=== PATIENT | female | born 1935 | race Caucasian/White ===

== ENCOUNTER 2016-11-05 10:59 | Emergency (ER) | payer MEDICARE, OTHER ==
[~2016-11-05] VITALS: Ht 165.1 cm; Wt 48.0 kg
[~2016-11-05 10:59] MED LIST: ACET-2321 PO; ASPI81TA2 PO; DILT360C38 PO; FOLI1TAB15 PO; HYDR-3989 PO; LEVO25TA9 PO; MIRT30TA6 PO; NICO1PAT16 TD; RALO60TA9 PO
[2016-11-05 11:00] VITALS: Ht 165.1 cm; Wt 48.0 kg
[2016-11-05] MEDS ORDERED: NORMAL SALINE 500 ML IV ONE (11:00)
--- OUTSIDE RECORDS SUMMARY | 2016-11-05 11:04 | XMS REPORT | Continuity of Care Document ---
Author Author [facility] Organization [facility] Address Unknown Phone Unavailable Support Name Relationship Address Phone JOYCE ROWE MD Caregiver [address] [place] [phone] LIA JACOB MD Caregiver [address] [place] [phone] THAIS LEWIS Next Of Kin [address] [place], [place] [id number] Insurance Providers Payer Name Policy Number Subscriber Name Relationship Medicare [id number] Parul Juarez 19 Self [facility] [id number] Rafa Lewis 01 Spouse Problems Medical Problems Problem Onset Date Status COPD Exacerbation Unknown Active Contusion Unknown Active 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 Viral illness Unknown Active Contusion Unknown Active Nausea & vomiting Unknown Active Nausea & vomiting Unknown Active Medications Medication Dose Route Sig Days/Qty Instructions Order Date Discontinued Date Status Aspirin 325 Mg PO DAILY 02/13/10 Active Torsemide 20 Mg PO DAILY 02/13/10 Active Raloxifene Hcl 60 Mg PO DAILY 02/13/10 Active Potassium Chloride 10 Meq PO TWICE A DAY 02/13/10 Active Lansoprazole 30 Mg PO DAILY 02/13/10 Active Acetaminophen With Codeine 1 Tab PO NEEDED 02/13/10 08/01/10 Discontinued Acetaminophen/Dp-Hydram Hcl 1 Tab PO BEDTIME 08/01/10 Active Escitalopram Oxalate 10 Mg PO DAILY 30 Qty 02/15/14 Active Zolpidem Tartrate 5 Mg PO BEDTIME PRN PRN ORDERS 30 Qty 02/15/14 Active Mirtazapine 15 Mg PO 30 Qty 02/15/14 Active Hydrocodone/Acetaminophen PO Every 6 Hours PRN PAIN 120 Qty 02/15/14 Active Fexofenadine HCl 1 Tab PO DAILY Do not drink [place], [place], or Grapefruit juice within 4 02/15/14 Active Mometasone Furoate 2 [place] EA NOSTRIL DAILY 02/15/14 Active Albuterol Sulfate 2 Puff INH FOUR TIMES DAILY PRN PRN ORDERS Active Ondansetron 4 Mg PO Q6H/0300,0900,1500,2100 For NAUSEA &/OR VOMITING 10 Qty 02/26/14 Active Social History Social History Problem Response Recorded Date/Time Smoking Status Current every day smoker 02/26/2014 6:25am 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 Plan of Care No plan of care. Functional Status Query Response Date Recorded Physical Hygiene Self February 26, 2014 6:25am Disabilities None February 26, 2014 6:25am Devices Used Glasses Wheelchair February 26, 2014 6:25am Dressing Self February 26, 2014 6:25am Ambulation Self February 26, 2014 6:25am Diet Self February 26, 2014 6:25am Mental Status Alert Oriented February 26, 2014 8:54am Disabilities None February 26, 2014 6:25am Devices Used Glasses Wheelchair February 26, 2014 6:25am Physical Hygiene Self February 26, 2014 6:25am Dressing Self February 26, 2014 6:25am Ambulation Self February 26, 2014 6:25am Diet Self February 26, 2014 6:25am Allergies, Adverse Reactions, Alerts Allergen Type Severity Reaction Status Last Updated NSAIDS (Non-Steroidal Anti-Inflamma Adverse Reaction Unknown KIDNEY PROBLEMS Active 02/26/14 Sulfa (Sulfonamide Antibiotics) Allergy Unknown Active 02/26/14 Morphine Allergy Intermediate rash Active 02/26/14 Alendronate sodium Allergy Unknown Active 02/26/14 Immunizations Name Given Type Hx Influenza Vaccination Y JUL 07 Historical Hx Pneumococcal Vaccination Y JUL 07 Historical Hx Influenza Vaccination Y JUL 07 Historical Vital Signs Acute Vital Signs Vital Response Date/Time Temperature (Fahrenheit) 98.3 deg F (96.8 - 99.1) Temperature (Calculated Celsius) 36.12474 degrees C (36.0 - 37.3) Pulse Rate (adult) 75 bpm (60 - 100) Respiratory Rate 23 breaths/min (10 - 20) O2 Sat by Pulse Oximetry 93 % (90 - 100) Blood Pressure 193/81 mm Hg Height 5 ft 5 in Weight 137 lb Body Mass Index 22.0 kg/m^2 Results Test Source Date Result Interp. Ref. Range Comments Alanine Aminotransferase (ALT/SGPT) February 26, 2014 6:11am 18 U/L N 9 -52 Albumin February 26, 2014 6:11am 4.5 G/DL N 3.5-5.0 Albumin/Globulin Ratio February 26, 2014 6:11am 1.4 RATIO N 1.1-2.2 Alkaline Phosphatase February 26, 2014 6:11am 108 U/L N 38-126 Amylase Level February 26, 2014 6:11am 63 U/L N 30-110 Anion Gap February 26, 2014 6:11am 13 MEQ/L N 5-15 Aspartate Amino Transf (AST/SGOT) February 26, 2014 6:11am 30 U/L N 14- 36 BUN/Creatinine Ratio February 26, 2014 6:11am 20 RATIO N 6-26 Band Neutrophils # August 06, 2010 4:25am 0.0 T/MM3 - Band Neutrophils % August 06, 2010 4:25am 0.0 % N 0-6 Basophils # (Auto) February 26, 2014 6:11am 0.0 T/MM3 N 0-0.2 Basophils # (Manual) August 06, 2010 4:25am 0.0 T/MM3 N 0-0.2 Basophils % (Manual) August 06, 2010 4:25am 0.3 % N 0-2 Basophils (%) (Auto) February 26, 2014 6:11am 0.2 % N 0-2 Blood Urea Nitrogen February 26, 2014 6:11am 20.0 MG/DL H 7-17 Calcium Level February 26, 2014 6:11am 10.2 MG/DL N 8.4-10.2 Calculated Osmolality February 26, 2014 6:11am 272 MOSM/KG N 261-280 Carbon Dioxide Level February 26, 2014 6:11am 23 MEQ/L N 22-30 Chloride Level February 26, 2014 6:11am 103 MEQ/L N 98-107 Creatinine February 26, 2014 6:11am 1.0 MG/DL N 0.7-1.2 Eosinophils # (Auto) February 26, 2014 6:11am 0.2 T/MM3 N 0-0.5 Eosinophils # (Manual) August 06, 2010 4:25am 0.3 T/MM3 N 0-0.5 Eosinophils % (Manual) August 06, 2010 4:25am 4.4 % H 0-4 Eosinophils (%) (Auto) February 26, 2014 6:11am 1.9 % N 0-4 Globulin February 26, 2014 6:11am 3.3 G/DL N 2.4-3.6 Glucose Level February 26, 2014 6:11am 122 MG/DL H 65-110 Hematocrit February 26, 2014 6:11am 39.8 % N 36-46 Hemoglobin February 26, 2014 6:11am 13.5 GM/DL N 12-16 Lipase February 26, 2014 6:11am 134 U/L N 23-300 Lymphocytes # (Auto) February 26, 2014 6:11am 0.9 T/MM3 L 1-4.8 Lymphocytes # (Manual) August 06, 2010 4:25am 0.6 T/MM3 L 1-4.8 Lymphocytes % (Manual) August 06, 2010 4:25am 9.4 % L 23-45 Lymphocytes (%) (Auto) February 26, 2014 6:11am 8.0 % L 23-45 Mean Corpuscular Hemoglobin February 26, 2014 6:11am 31.6 UUG N 26-34 Mean Corpuscular Hemoglobin Concent February 26, 2014 6:11am 33.9 GM/DL N 31-37 Mean Corpuscular Volume February 26, 2014 6:11am 93.2 UM3 N 80-100 Mean Platelet Volume February 26, 2014 6:11am 11.7 UM3 N 9.4-12.4 Monocytes # (Auto) February 26, 2014 6:11am 0.5 T/MM3 N 0-0.8 Monocytes # (Manual) August 06, 2010 4:25am 0.4 T/MM3 N 0-0.8 Monocytes % (Manual) August 06, 2010 4:25am 6.8 % N 0-9.0 Monocytes (%) (Auto) February 26, 2014 6:11am 4.8 % N 0-9.0 Neutrophils # (Auto) February 26, 2014 6:11am 9.6 T/MM3 H 1.8-7.7 Neutrophils # (Manual) August 06, 2010 4:25am 5.2 T/MM3 N 1.8-7.7 Neutrophils % (Manual) August 06, 2010 4:25am 79.1 % H 33-66 Neutrophils (%) (Auto) February 26, 2014 6:11am 85.0 % H 33-66 Platelet Count February 26, 2014 6:11am 129 T/MM3 L 130-400 Potassium Level February 26, 2014 6:11am 3.6 MEQ/L N 3.6-5 RDW Standard Deviation February 26, 2014 6:11am 42.9 FL N 36.9-50.2 Red Blood Count February 26, 2014 6:11am 4.27 M/MM3 N 4.00-5.20 Sodium Level February 26, 2014 6:11am 139 MEQ/L N 134-144 Total Bilirubin February 26, 2014 6:11am 0.70 MG/DL N 0.20-1.30 Total Protein February 26, 2014 6:11am 7.8 G/DL N 6.3-8.2 Troponin I February 26, 2014 6:11am 0.021 ng/ml N 0-0.12 Urine Bacteria February 21, 2013 8:57pm 1+ H - Has specimen been collected/obtained? Y Urine Bilirubin February 26, 2014 7:35am Negative - Has specimen been collected/obtained? Y Urine Blood February 26, 2014 7:35am Negative - Has specimen been collected/obtained? Y Urine Collection Type February 26, 2014 7:35am Cleancatch-midstream - Has specimen been collected/obtained? Y Urine Color February 26, 2014 7:35am Yellow - Has specimen been collected/obtained? Y Urine Culture Indicated February 21, 2013 8:57pm Cult not indicated - Has specimen been collected/obtained? Y Urine Glucose (UA) February 26, 2014 7:35am Negative - Has specimen been collected/obtained? Y Urine Ketones February 26, 2014 7:35am 1+ H - Has specimen been collected/obtained? Y Urine Leukocyte Esterase February 26, 2014 7:35am Negative - Has specimen been collected/obtained? Y Urine Nitrite February 26, 2014 7:35am Negative - Has specimen been collected/obtained? Y Urine Protein February 26, 2014 7:35am Negative - Has specimen been collected/obtained? Y Urine RBC February 21, 2013 8:57pm 1-3 /HPF - Has specimen been collected/obtained? Y Urine Specific [place] February 26, 2014 7:35am 1.015 - Has specimen been collected/obtained? Y Urine Squamous Epithelial Cells February 21, 2013 8:57pm 0-5 - Has specimen been collected/obtained? Y Urine Turbidity February 26, 2014 7:35am Clear - Has specimen been collected/obtained? Y Urine Urobilinogen February 26, 2014 7:35am 0.2 EU/DL - Has specimen been collected/obtained? Y Urine WBC February 21, 2013 8:57pm 0-1 /HPF - Has specimen been collected/obtained? Y Urine pH February 26, 2014 7:35am 6.0 - Has specimen been collected/ obtained? Y White Blood Count February 26, 2014 6:11am 11.3 T/MM3 H 4.5-11.0 Chemistry Specimen Hemolysis February 26, 2014 6:11am 17 N 0-25 0-25: No Hemolysis.26-70: Slight Hemolysis - can falsely elevate K and Urine Protein. 71-285: Moderate Hemolysis - can falsely elevate K, Troponin I, CA 19-9, PTH, CSF GLucose, and Urine Protein, and can falsely decrease Phenytoin. 286-999: Gross Hemolysis - can falsely elevate K, Troponin I, CA 19-9, PTH, CSF Glucose, and Urine Protine, and can falsely decrease Phenytoin. Recommend specimen recollection. Urinalysis Comment February 26, 2014 7:35am Microscopic not ind. - Has specimen been collected/obtained? Y Turbidity February 26, 2014 6:11am < 20 0-20 Glomerular Filtration Rate Calc February 26, 2014 6:11am 54 - Immature Granulocyte # (Auto) February 26, 2014 6:11am 0.01 T/MM3 N 0.00-0.03 Immature Granulocyte % (Auto) February 26, 2014 6:11am 0.1 % N 0.0-0.5 Icterus Index February 26, 2014 6:11am < 2 0-7 Urine Culture Urine, [place] August 01, 2010 4:14am Escherichia Coli Name: PARUL JUAREZ Unit #: [id number] : 1935 Sex: F Loc / Sv: ED DOS: 02/26/14 Signed Report #: [id number] DIAGNOSTIC IMAGING REPORT TYPE OF EXAM: ABDOMEN ACUTE (INC. CHEST) Dictated By: ROCK ROSE MD INDICATION: ITS.REASON: NAUSEA/VOMITING ABDOMEN ACUTE (INC. CHEST): Comparison: February 15, 2014 FINDINGS: The lungs are clear. There is no abnormal airspace opacity, pleural effusion or pneumothorax identified. The heart size, pulmonary vasculature and mediastinum are unchanged. There is no free air on the upright view. The bowel gas pattern is nonobstructive and nonspecific. Gas is seen in nondilated small and large bowel to the level of the rectum. Large amount of stool is seen throughout the colon. Pelvic deformity likely from old trauma. Orthopedic hardware the right femur. Degenerative change and scoliosis in the spine. IMPRESSION: 1. No acute cardiopulmonary abnormality. 2. No evidence of acute obstruction or free air. . Procedures Procedure Status Date Provider(s) HYDRATION IV INFUSION INIT completed 02/15/14 Encounters Encounter Location Date/Time Departed Emergency Room [facility] 02/26/14 6:25am Departed Emergency Room [facility] 02/15/14 12:45pm Recent Diagnosis
--- OUTSIDE RECORDS SUMMARY | 2016-11-05 11:04 | XMS REPORT | Continuity of Care Document ---
Author Author [facility] Organization [facility] Address Unknown Phone Unavailable Support Name Relationship Address Phone ABIGAIL NUÑEZ MD Caregiver [address] [place] [address] [place] [address] JOYCE ROWE MD Caregiver [address] [place] [address] [place] [address] [phone] PAUL HUANG MD Caregiver [address] [place] [address] [place] [address] THAIS LEWIS Next Of Kin [address] [place] [address] Insurance Providers Payer Name Policy Number Subscriber Name Relationship Medicare [id number] Parul Juarez 19 Self [facility] Preferred [id number] Rafa Lewis 01 Spouse Advance Directives Directive Response Recorded Date/Time Advanced Directives Type None 06/08/14 8:07pm Ordered Resuscitation Status Full Code 06/08/14 8:08pm Chief Complaint and Reason for Visit Chief Complaint HYPERTENSIVE URGENCY/NEW ONSET AFIB Reason for Visit Hypertensive urgency Atrial fibrillation GERD (gastroesophageal reflux disease) CAD (coronary artery disease) Osteoporosis OA (osteoarthritis) Tobacco dependence Anemia Depression Problems Medical Problems Problem Onset Date Status COPD Exacerbation Unknown Active Contusion Unknown Active 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 Viral illness Unknown Active Contusion Unknown Active Nausea & vomiting Unknown Active Nausea & vomiting Unknown Active Hypertensive urgency Unknown Active Atrial fibrillation Unknown Active GERD (gastroesophageal reflux disease) Unknown Active CAD (coronary artery disease) Unknown Active Osteoporosis Unknown Active OA (osteoarthritis) Unknown Active Tobacco dependence Unknown Active Anemia Unknown Active Depression Unknown Active Medications Medication Dose Route Sig Days/Qty Instructions Order Date Discontinued Date Status Torsemide 20 Mg PO DAILY 02/13/10 Active Raloxifene Hcl 60 Mg PO DAILY 02/13/10 Active Potassium Chloride 10 Meq PO DAILY 02/13/10 Active Lansoprazole 30 Mg PO DAILY [...] Tab PO DAILY Do not drink Apple, [place], or Grapefruit juice within 4 02/15/14 Active Mometasone Furoate 2 [place] EA NOSTRIL DAILY 02/15/14 Active Albuterol Sulfate 2 Puff INH FOUR TIMES DAILY PRN PRN ORDERS Active Multivitamin 1 Tab PO DAILY 06/08/14 Active Cephalexin Unknown Dose PO BEDTIME 06/08/14 Active Oxymetazoline HCl Unknown Dose 06/08/14 Active Diltiazem HCl 180 Mg PO DAILY For afib 30 Qty 06/09/14 Active Rivaroxaban 20 Mg PO GIVE WITH SUPPER For afib 30 Qty 06/09/14 Active Social History Social History Problem Response Recorded Date/Time Hx Substance Use No 06/08/2014 3:45pm Hx Alcohol Use No 06/08/2014 3:45pm Has the pt used tobacco in the last 12 months Yes 06/08/2014 8:37pm Tobacco Usage smoke 06/09/2014 9:19am Query Response Start Date Stop Date Smoking Status Current every day smoker Hospital Discharge Instructions Instructions: Care Instructions: Reason for Hospitalization: Atrial Fibrillation I was in the hospital because (patient own words): "TROUBLE WITH MY BALANCE" Discharge Diet: Low Sodium (Salt) Discharge Activity: As tolerated. Follow Up Appointments: Follow up with Dr Quiles in 1 week - call tomorrow for apt. Follow up with Sonia Miller for Primary Care Provider Condition at time of discharge: Good Good Congenital Heart Disease Screening Result: Pass Temperature over 101 degress Fahrenheit Increased or foul smelling drainage Chills IF BLEEDING, PAIN OR PROGRESSIVE SWELLING OCCURS TO THE SITE, APPLY PRESSURE AND CALL 911. Condition at time of discharge: Fair Fair Condition at time of discharge: Good rate >100, confusion, or persistent nausea/vomitting. 2.Severe pain, swelling, redness, or warmth in either of your legs. 3.During office hours, call [phone] 4. After hours, please call [facility] at [phone], and have the operator maintainer page your Surgeon IN THE EVENT OF AN EMERGENCY, seek medical care at the nearest Emergency Room Condition at time of discharge: Good Plan of Care Discharge Date 06/09/14 3:35pm Disposition 01 DISCHARGED HOME, SELF-CARE Instructions/Education Provided Atrial Fibrillation DI for High Blood Pressure Prescriptions See Medications Section Functional Status Query Response Date Recorded Physical Hygiene Self June 08, 2014 3:45pm Disabilities Hearing Visual June 08, 2014 8:07pm Devices Used Glasses Walker Wheelchair June 08, 2014 8:07pm Dressing Self June 08, 2014 3:45pm Ambulation Self June 08, 2014 3:45pm Diet Self June 08, 2014 3:45pm Mental Status Alert Oriented June 08, 2014 8:01pm Disabilities Hearing Visual June 08, 2014 8:07pm Devices Used Glasses Walker Wheelchair June 08, 2014 8:07pm Physical Hygiene Self June 08, 2014 3:45pm Dressing Self June 08, 2014 3:45pm Ambulation Self June 08, 2014 3:45pm Diet Self June 08, 2014 3:45pm Allergies, Adverse Reactions, Alerts Allergen Type Severity Reaction Status Last Updated NSAIDS (Non-Steroidal Anti-Inflamma Adverse Reaction Unknown KIDNEY PROBLEMS Active 06/08/14 Sulfa (Sulfonamide Antibiotics) Allergy Unknown Active 02/26/14 Morphine Allergy Intermediate rash Active 06/08/14 Alendronate sodium Allergy Unknown Active 02/26/14 Immunizations Name Given Type Hx Influenza Vaccination Y PROB 2012 WAS LAST ONE Historical Hx Pneumococcal Vaccination Y JUL 07 Historical Hx Influenza Vaccination Y PROB 2012 WAS LAST ONE Historical Vital Signs Acute Vital Signs Vital Response Date/Time Temperature (Fahrenheit) 97.2 deg F (96.8 - 99.1) Temperature (Calculated Celsius) 36.10011 degrees C (36.0 - 37.3) Temperature Source Oral Pulse Rate (adult) 82 bpm (60 - 100) Respiratory Rate 20 breaths/min (10 - 20) Height 5 ft 5 in Weight 138 lb Body Mass Index 23.0 kg/m^2 Results Test Source Date Result Interp. Ref. Range Comments Vitamin B12 Level June 09, 2014 5:22am 836 PG/ML N 239-931 Thyroid Stimulating Hormone (TSH) June 09, 2014 5:22am 3.55 MIU/L N 0.47-4.68 COMMENT rita Prealbumin June 09, 2014 5:22am 22.4 MG/DL N 17.6-36.0 Alanine Aminotransferase (ALT/SGPT) June 08, 2014 4:11pm 34 U/L N 9- 52 Albumin June 08, 2014 4:11pm 4.2 G/DL N 3.5-5.0 Albumin/Globulin Ratio June 08, 2014 4:11pm 1.4 RATIO N 1.1-2.2 Alcohol, Quantitative June 08, 2014 4:11pm <10 MG/DL - Alkaline Phosphatase June 08, 2014 4:11pm 61 U/L N 38-126 Amylase Level February 26, 2014 6:11am 63 U/L N 30-110 Anion Gap June 09, 2014 5:22am 6 MEQ/L N 5-15 Aspartate Amino Transf (AST/SGOT) June 08, 2014 4:11pm 32 U/L N 14- 36 BUN/Creatinine Ratio June 09, 2014 5:22am 18 RATIO N 6-26 Band Neutrophils # August 06, 2010 4:25am 0.0 T/MM3 - Band Neutrophils % August 06, 2010 4:25am 0.0 % N 0-6 Basophils # (Auto) June 09, 2014 5:22am 0.0 T/MM3 N 0-0.2 Basophils # (Manual) August 06, 2010 4:25am 0.0 T/MM3 N 0-0.2 Basophils % (Manual) August 06, 2010 4:25am 0.3 % N 0-2 Basophils (%) (Auto) June 09, 2014 5:22am 0.2 % N 0-2 Blood Urea Nitrogen June 09, 2014 5:22am 18.0 MG/DL H 7-17 Calcium Level June 09, 2014 5:22am 9.3 MG/DL N 8.4-10.2 Calculated Osmolality June 09, 2014 5:22am 266 MOSM/KG N 261-280 Carbon Dioxide Level June 09, 2014 5:22am 24 MEQ/L N 22-30 Chemistry Specimen Hemolysis June 09, 2014 5:22am < 15 0-25 0-25 : No Hemolysis.26-70: Slight Hemolysis - can falsely elevate K and Urine Protein. 71-285: Moderate Hemolysis - can falsely elevate K, Troponin I, CA 19-9, PTH, CSF GLucose, and Urine Protein, and can falsely decrease Phenytoin. 286-999: Gross Hemolysis - can falsely elevate K, Troponin I, CA 19-9, PTH, CSF Glucose, and Urine Protine, and can falsely decrease Phenytoin. Recommend specimen recollection. Chloride Level June 09, 2014 5:22am 107 MEQ/L N 98-107 Creatinine June 09, 2014 5:22am 1.0 MG/DL DN 0.7-1.2 Eosinophils # (Auto) June 09, 2014 5:22am 0.2 T/MM3 N 0-0.5 Eosinophils # (Manual) August 06, 2010 4:25am 0.3 T/MM3 N 0-0.5 Eosinophils % (Manual) August 06, 2010 4:25am 4.4 % H 0-4 Eosinophils (%) (Auto) June 09, 2014 5:22am 2.8 % N 0-4 Globulin June 08, 2014 4:11pm 3.1 G/DL N 2.4-3.6 Glomerular Filtration Rate Calc June 09, 2014 5:22am 54 - Glucose Level June 09, 2014 5:22am 99 MG/DL N 65-110 Hematocrit June 09, 2014 5:22am 35.2 % L 36-46 Hemoglobin June 09, 2014 5:22am 11.8 GM/DL L 12-16 Icterus Index June 09, 2014 5:22am < 2 0-7 Immature Granulocyte # (Auto) June 09, 2014 5:22am 0.01 T/MM3 N 0.00 -0.03 Immature Granulocyte % (Auto) June 09, 2014 5:22am 0.1 % N 0.0-0.5 Lipase February 26, 2014 6:11am 134 U/L N 23-300 Lymphocytes # (Auto) June 09, 2014 5:22am 1.2 T/MM3 N 1-4.8 Lymphocytes # (Manual) August 06, 2010 4:25am 0.6 T/MM3 L 1-4.8 Lymphocytes % (Manual) August 06, 2010 4:25am 9.4 % L 23-45 Lymphocytes (%) (Auto) June 09, 2014 5:22am 14.8 % L 23-45 Mean Corpuscular Hemoglobin June 09, 2014 5:22am 31.3 UUG N 26-34 Mean Corpuscular Hemoglobin Concent June 09, 2014 5:22am 33.5 GM/DL N 31-37 Mean Corpuscular Volume June 09, 2014 5:22am 93.4 UM3 N 80-100 Mean Platelet Volume June 09, 2014 5:22am 11.8 UM3 N 9.4-12.4 Monocytes # (Auto) June 09, 2014 5:22am 0.8 T/MM3 N 0-0.8 Monocytes # (Manual) August 06, 2010 4:25am 0.4 T/MM3 N 0-0.8 Monocytes % (Manual) August 06, 2010 4:25am 6.8 % N 0-9.0 Monocytes (%) (Auto) June 09, 2014 5:22am 9.8 % H 0-9.0 Neutrophils # (Auto) June 09, 2014 5:22am 6.0 T/MM3 N 1.8-7.7 Neutrophils # (Manual) August 06, 2010 4:25am 5.2 T/MM3 N 1.8-7.7 Neutrophils % (Manual) August 06, 2010 4:25am 79.1 % H 33-66 Neutrophils (%) (Auto) June 09, 2014 5:22am 72.3 % H 33-66 Platelet Count June 09, 2014 5:22am 93 T/MM3 L 130-400 Potassium Level June 09, 2014 5:22am 3.9 MEQ/L N 3.6-5 Procalcitonin June 08, 2014 4:11pm < 0.05 NG/ML - PCT </=0.5 ng/ mL - sepsis not likely;PCT >0.5 and </=2 ng/mL - sepsis possible; PCT >2 ng/mL - sepsis likely; PCT >/=10 ng/mL - systemic inflammatory response - sepsis or septic shock highly indicated. RDW Standard Deviation June 09, 2014 5:22am 47.2 FL N 36.9-50.2 Red Blood Count June 09, 2014 5:22am 3.77 M/MM3 L 4.00-5.20 Sodium Level June 09, 2014 5:22am 137 MEQ/L N 134-144 Total Bilirubin June 08, 2014 4:11pm 0.60 MG/DL N 0.20-1.30 Total Protein June 08, 2014 4:11pm 7.3 G/DL N 6.3-8.2 Troponin I June 09, 2014 5:22am 0.038 ng/ml N 0-0.12 Turbidity June 09, 2014 5:22am < 20 0-20 Urinalysis Comment June 08, 2014 4:25pm Microscopic not ind. - Has specimen been collected/obtained? Y Urine Bacteria February 21, 2013 8:57pm 1+ H - Has specimen been collected/obtained? Y Urine Bilirubin June 08, 2014 4:25pm Negative - Has specimen been collected/obtained? Y Urine Blood June 08, 2014 4:25pm Negative - Has specimen been collected/obtained? Y Urine Collection Type June 08, 2014 4:25pm Straight cath - Has specimen been collected/obtained? Y Urine Color June 08, 2014 4:25pm Yellow - Has specimen been collected/obtained? Y Urine Culture Indicated February 21, 2013 8:57pm Cult not indicated - Has specimen been collected/obtained? Y Urine Glucose (UA) June 08, 2014 4:25pm Negative - Has specimen been collected/obtained? Y Urine Ketones June 08, 2014 4:25pm Negative - Has specimen been collected/obtained? Y Urine Leukocyte Esterase June 08, 2014 4:25pm Negative - Has specimen been collected/obtained? Y Urine Nitrite June 08, 2014 4:25pm Negative - Has specimen been collected/obtained? Y Urine Protein June 08, 2014 4:25pm Negative - Has specimen been collected/obtained? Y Urine RBC February 21, 2013 8:57pm 1-3 /HPF - Has specimen been collected/obtained? Y Urine Specific [place] June 08, 2014 4:25pm 1.015 - Has specimen been collected/obtained? Y Urine Squamous Epithelial Cells February 21, 2013 8:57pm 0-5 - Has specimen been collected/obtained? Y Urine Turbidity June 08, 2014 4:25pm Clear - Has specimen been collected/obtained? Y Urine Urobilinogen June 08, 2014 4:25pm 0.2 EU/DL - Has specimen been collected/obtained? Y Urine WBC February 21, 2013 8:57pm 0-1 /HPF - Has specimen been collected/obtained? Y Urine pH June 08, 2014 4:25pm 7.0 - Has specimen been collected/ obtained? Y Venous Blood Lactate June 08, 2014 4:11pm 0.9 MMOL/L N 0.6-2.2 White Blood Count June 09, 2014 5:22am 8.3 T/MM3 N 4.5-11.0 Urine Culture Urine, [place] August 01, 2010 4:14am Escherichia Coli Name: PARUL JUAREZ Unit #: [id number] : 1935 Sex: F Loc / Svc: SRG DOS: 06/08/14 Signed Report #: [id number] DIAGNOSTIC IMAGING REPORT TYPE OF EXAM: CT HEAD W/O CONTRAST Dictated By: ROCK ROSE MD INDICATION: ITS.REASON: feels like floating CT HEAD W/O CONTRAST: Comparison: None Technique: Axial CT images through the head were performed without contrast. FINDINGS: Mild to moderate atrophy. The ventricles are of normal size, shape, and contour for the patient's age. There are extensive areas of low attenuation in the white matter which most likely represent changes from chronic microvascular ischemia. The brainstem, cerebellum, and cerebral hemispheres otherwise have a normal morphology and CT attenuation. There is no evidence of midline displacement. No hemorrhage, signs of acute territorial stroke, mass effect, mass lesions, or edema is evident. The visualized portions of the skull base, midface, and calvarium demonstrate no abnormality. The paranasal sinuses are well aerated and free of significant disease. Left mastoid effusion. IMPRESSION: No acute intracranial abnormality or hemorrhage. Left mastoid effusion could represent a mastoiditis. There is a preliminary report by virtual radiologic. . Procedures No known history of procedures. Encounters Encounter Location Date/Time Admitted Inpatient [facility] 06/08/14 8:05pm Recent Diagnosis Hypertensive urgency Atrial fibrillation GERD (gastroesophageal reflux disease) CAD (coronary artery disease) Osteoporosis OA (osteoarthritis) Tobacco dependence Anemia Depression
--- OUTSIDE RECORDS SUMMARY | 2016-11-05 11:05 | XMS REPORT | Continuity of Care Document ---
Author Author [facility] Organization [facility] Address Unknown Phone Unavailable Support Name Relationship Address Phone ROGERS DE LA GARZA MD Caregiver [address] [place] [address] LOS VARGAS CRNA Caregiver [address] [place] [address] JOYCE ROWE MD Caregiver [address] [place] [phone] THAIS LEWIS Next Of Kin [address] [place] [address] Insurance Providers Payer Name Policy Number Subscriber Name Relationship Medicare [id number] Parul Juarez [address] [facility] Preferred [id number] Rafa Lewis 01 Spouse Advance Directives Directive Response Recorded Date/Time Advanced Directives Type None 02/15/14 1:08pm Problems Medical Problems Problem Onset Date Status COPD Exacerbation Unknown Active Contusion Unknown Active 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 Viral illness Unknown Active Medications Medication Dose Route Sig [...] Tab PO DAILY Do not drink Apple, [place], or Grapefruit juice within 4 02/15/14 Active Mometasone Furoate 2 [place] EA NOSTRIL DAILY 02/15/14 Active Albuterol Sulfate 2 Puff INH FOUR TIMES DAILY PRN PRN ORDERS Active Social History Social History Problem Response Recorded Date/Time Smoking Status Current every day smoker 02/15/2014 1:08pm Hx Substance Use No 02/15/2014 1:08pm Hx Alcohol Use No 02/15/2014 1:08pm Query Response Start Date Stop Date Smoking Status Current every day smoker Hospital Discharge Instructions No hospital discharge instructions. Plan of Care No plan of care. Functional Status Query Response Date Recorded Physical Hygiene Self February 15, 2014 1:08pm Disabilities None February 15, 2014 1:08pm Devices Used Glasses February 15, 2014 1:08pm Dressing Self February 15, 2014 1:08pm Ambulation Self February 15, 2014 1:08pm Diet Self February 15, 2014 1:08pm Mental Status Alert Oriented February 15, 2014 1:08pm Disabilities None February 15, 2014 1:08pm Devices Used Glasses February 15, 2014 1:08pm Physical Hygiene Self February 15, 2014 1:08pm Dressing Self February 15, 2014 1:08pm Ambulation Self February 15, 2014 1:08pm Diet Self February 15, 2014 1:08pm Allergies, Adverse Reactions, Alerts Allergen Type Severity Reaction Status Last Updated NSAIDS (Non-Steroidal Anti-Inflamma Adverse Reaction Unknown KIDNEY PROBLEMS Active 02/25/13 Sulfa (Sulfonamide Antibiotics) Allergy Unknown Active 02/25/13 Morphine Allergy Intermediate rash Active 02/25/13 Alendronate sodium Allergy Unknown Active 02/25/13 Immunizations Name Given Type Hx Influenza Vaccination Y JUL 07 Historical Hx Pneumococcal Vaccination Y JUL 07 Historical Hx Influenza Vaccination Y JUL 07 Historical Vital Signs Acute Vital Signs Vital Response Date/Time Temperature (Fahrenheit) 98.5 deg F (96.8 - 99.1) Temperature (Calculated Celsius) 36.88930 degrees C (36.0 - 37.3) Pulse Rate (adult) 90 bpm (60 - 100) Respiratory Rate 16 breaths/min (10 - 20) O2 Sat by Pulse Oximetry 98 % (90 - 100) Blood Pressure 141/76 mm Hg Height 5 ft 5 in Weight 138 lb Body Mass Index 23.0 kg/m^2 Results Test Source Date Result Interp. Ref. Range Comments Alanine Aminotransferase (ALT/SGPT) February 15, 2014 2:00pm 24 U/L N 9- 52 Albumin February 15, 2014 2:00pm 4.5 G/DL N 3.5-5.0 Albumin/Globulin Ratio February 15, 2014 2:00pm 1.4 RATIO N 1.1-2.2 Alkaline Phosphatase February 15, 2014 2:00pm 84 U/L N 38-126 Amylase Level February 21, 2013 7:40pm 63 U/L N 30-110 Anion Gap February 15, 2014 2:00pm 12 MEQ/L N 5-15 Aspartate Amino Transf (AST/SGOT) February 15, 2014 2:00pm 27 U/L N 14-36 BUN/Creatinine Ratio February 15, 2014 2:00pm 14 RATIO N 6-26 Band Neutrophils # August 06, 2010 4:25am 0.0 T/MM3 - Band Neutrophils % August 06, 2010 4:25am 0.0 % N 0-6 Basophils # (Auto) February 15, 2014 2:00pm 0.0 T/MM3 N 0-0.2 Basophils # (Manual) August 06, 2010 4:25am 0.0 T/MM3 N 0-0.2 Basophils % (Manual) August 06, 2010 4:25am 0.3 % N 0-2 Basophils (%) (Auto) February 15, 2014 2:00pm 0.3 % N 0-2 Blood Urea Nitrogen February 15, 2014 2:00pm 15.0 MG/DL N 7-17 Calcium Level February 15, 2014 2:00pm 10.1 MG/DL N 8.4-10.2 Calculated Osmolality February 15, 2014 2:00pm 277 MOSM/KG N 261-280 Carbon Dioxide Level February 15, 2014 2:00pm 27 MEQ/L N 22-30 Chemistry Specimen Hemolysis February 15, 2014 2:00pm < 15 0-25 0-25: No Hemolysis.26-70: Slight Hemolysis - [...] decrease Phenytoin. Recommend specimen recollection. Chloride Level February 15, 2014 2:00pm 104 MEQ/L N 98-107 Creatinine February 15, 2014 2:00pm 1.1 MG/DL N 0.7-1.2 Eosinophils # (Auto) February 15, 2014 2:00pm 0.1 T/MM3 N 0-0.5 Eosinophils # (Manual) August 06, 2010 4:25am 0.3 T/MM3 N 0-0.5 Eosinophils % (Manual) August 06, 2010 4:25am 4.4 % H 0-4 Eosinophils (%) (Auto) February 15, 2014 2:00pm 1.3 % N 0-4 Globulin February 15, 2014 2:00pm 3.2 G/DL N 2.4-3.6 Glomerular Filtration Rate Calc February 15, 2014 2:00pm 48 - Glucose Level February 15, 2014 2:00pm 109 MG/DL N 65-110 Hematocrit February 15, 2014 2:00pm 40.1 % N 36-46 Hemoglobin February 15, 2014 2:00pm 13.1 GM/DL N 12-16 Icterus Index February 15, 2014 2:00pm < 2 0-7 Immature Granulocyte # (Auto) February 15, 2014 2:00pm 0.01 T/MM3 N 0.00- 0.03 Immature Granulocyte % (Auto) February 15, 2014 2:00pm 0.1 % N 0.0-0.5 Lipase February 21, 2013 7:40pm 189 U/L N 23-300 Lymphocytes # (Auto) February 15, 2014 2:00pm 0.9 T/MM3 L 1-4.8 Lymphocytes # (Manual) August 06, 2010 4:25am 0.6 T/MM3 L 1-4.8 Lymphocytes % (Manual) August 06, 2010 4:25am 9.4 % L 23-45 Lymphocytes (%) (Auto) February 15, 2014 2:00pm 12.4 % L 23-45 Mean Corpuscular Hemoglobin February 15, 2014 2:00pm 31.1 UUG N 26-34 Mean Corpuscular Hemoglobin Concent February 15, 2014 2:00pm 32.7 GM/DL N 31-37 Mean Corpuscular Volume February 15, 2014 2:00pm 95.2 UM3 N 80-100 Mean Platelet Volume February 15, 2014 2:00pm 11.0 UM3 N 9.4-12.4 Monocytes # (Auto) February 15, 2014 2:00pm 0.4 T/MM3 N 0-0.8 Monocytes # (Manual) August 06, 2010 4:25am 0.4 T/MM3 N 0-0.8 Monocytes % (Manual) August 06, 2010 4:25am 6.8 % N 0-9.0 Monocytes (%) (Auto) February 15, 2014 2:00pm 5.5 % N 0-9.0 Neutrophils # (Auto) February 15, 2014 2:00pm 5.6 T/MM3 N 1.8-7.7 Neutrophils # (Manual) August 06, 2010 4:25am 5.2 T/MM3 N 1.8-7.7 Neutrophils % (Manual) August 06, 2010 4:25am 79.1 % H 33-66 Neutrophils (%) (Auto) February 15, 2014 2:00pm 80.4 % H 33-66 Platelet Count February 15, 2014 2:00pm 123 T/MM3 L 130-400 Potassium Level February 15, 2014 2:00pm 3.9 MEQ/L N 3.6-5 RDW Standard Deviation February 15, 2014 2:00pm 43.9 FL N 36.9-50.2 Red Blood Count February 15, 2014 2:00pm 4.21 M/MM3 N 4.00-5.20 Sodium Level February 15, 2014 2:00pm 143 MEQ/L N 134-144 Total Bilirubin February 15, 2014 2:00pm 0.60 MG/DL N 0.20-1.30 Total Protein February 15, 2014 2:00pm 7.7 G/DL N 6.3-8.2 Troponin I February 15, 2014 2:00pm 0.022 ng/ml N 0-0.12 Turbidity February 15, 2014 2:00pm < 20 0-20 Urinalysis Comment February 15, 2014 3:00pm Microscopic not ind. - Has specimen been collected/obtained? Y Urine Bacteria February 21, 2013 8:57pm 1+ H - Has specimen been collected/obtained? Y Urine Bilirubin February 15, 2014 3:00pm Negative - Has specimen been collected/obtained? Y Urine Blood February 15, 2014 3:00pm Negative - Has specimen been collected/obtained? Y Urine Collection Type February 15, 2014 3:00pm Voided-not cc-midstr - Has specimen been collected/obtained? Y Urine Color February 15, 2014 3:00pm Yellow - Has specimen been collected/obtained? Y Urine Culture Indicated February 21, 2013 8:57pm Cult not indicated - Has specimen been collected/obtained? Y Urine Glucose (UA) February 15, 2014 3:00pm Negative - Has specimen been collected/obtained? Y Urine Ketones February 15, 2014 3:00pm Negative - Has specimen been collected/obtained? Y Urine Leukocyte Esterase February 15, 2014 3:00pm Negative - Has specimen been collected/obtained? Y Urine Nitrite February 15, 2014 3:00pm Negative - Has specimen been collected/obtained? Y Urine Protein February 15, 2014 3:00pm Negative - Has specimen been collected/obtained? Y Urine RBC February 21, 2013 8:57pm 1-3 /HPF - Has specimen been collected/obtained? Y Urine Specific [place] February 15, 2014 3:00pm 1.020 - Has specimen been collected/obtained? Y Urine Squamous Epithelial Cells February 21, 2013 8:57pm 0-5 - Has specimen been collected/obtained? Y Urine Turbidity February 15, 2014 3:00pm Clear - Has specimen been collected/obtained? Y Urine Urobilinogen February 15, 2014 3:00pm 0.2 EU/DL - Has specimen been collected/obtained? Y Urine WBC February 21, 2013 8:57pm 0-1 /HPF - Has specimen been collected/obtained? Y Urine pH February 15, 2014 3:00pm 7.0 - Has specimen been collected/ obtained? Y White Blood Count February 15, 2014 2:00pm 6.9 T/MM3 N 4.5-11.0 Urine Culture Urine, [place] August 01, 2010 4:14am Escherichia Coli Name: PARUL JUAREZ Unit #: [id number] : 1935 Sex: F Loc / Svc: ED DOS: 02/15/14 Signed Report #: [id number] DIAGNOSTIC IMAGING REPORT TYPE OF EXAM: HIP RIGHT 2 VIEW Dictated By: DIONICIO LEVI MD INDICATION: ITS.REASON: fell ^fell COMPARISON: none. HIP RIGHT 2 VIEW: Fixation screw and harpreet in the right hip and femur. Total knee arthroplasty is noted. No evidence of an acute fracture. Lucency surrounding the threads of the femoral neck screw suggest that it could be loose. Bone density is normal for age. IMPRESSION: Fracture implant could be loose. No evidence of an acute fracture. . Procedures No known history of procedures. Encounters Encounter Location Date/Time Registered Emergency Room [facility] 02/15/14 12:45pm Recent Diagnosis
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
--- OUTSIDE RECORDS SUMMARY | 2016-11-05 11:17 | XMS REPORT | Continuity of Care Document ---
Author Author [facility] Organization [facility] Address Unknown Phone Unavailable Support Name Relationship Address Phone ABIGAIL NUÑEZ MD Caregiver [address] [place] [address] [place] [address] JOYCE ROWE MD Caregiver [address] [place] [address] [place] [address] [phone] PAUL HUANG MD Caregiver [address] [place] [address] [place] [address] THAIS LEWIS Next Of Kin [address] [place] [address] Insurance Providers Payer Name Policy Number Subscriber Name Relationship Medicare [id number] Parul Juarez 19 Self [facility] Preferred [id number] Rafa Lewis 01 Spouse Advance Directives Directive [...] Tab PO DAILY Do not drink Apple, P[place], or Grapefruit juice within 4 02/15/14 Active Mometasone Furoate 2 [place] EA NOSTRIL DAILY 02/15/14 Active Albuterol Sulfate [...] of your legs. 3.During office hours, call [phone] 4. After hours, please call [facility] at [phone], and have the honing machine operator production page your Surgeon IN THE EVENT OF [...] F (96.8 - 99.1) Temperature (Calculated Celsius) 36.61363 degrees C (36.0 - 37.3) Temperature Source [...] Has specimen been collected/obtained? Y Urine Specific [place] June 08, 2014 4:25pm 1.015 - Has [...] Escherichia Coli Name: PARUL JUAREZ Unit #: [id number] : 1935 Sex: F Loc / Svc: SRG DOS: 06/08/14 Signed Report #: [id number] DIAGNOSTIC IMAGING REPORT TYPE OF EXAM: CT [...] procedures. Encounters Encounter Location Date/Time Admitted Inpatient [facility] 06/08/14 8:05pm Recent Diagnosis Hypertensive urgency Atrial fibrillation GERD (gastroesophageal reflux disease) CAD (coronary artery disease) Osteoporosis OA (osteoarthritis) Tobacco dependence Anemia Depression
--- OUTSIDE RECORDS SUMMARY | 2016-11-05 11:17 | XMS REPORT | Continuity of Care Document ---
Author Author LIVE Organization LIVE Address Unknown Phone Unavailable Support Name Relationship Address Phone ROGERS DE LA GARZA MD Caregiver [address] [place] [address] [place] C[employer] Caregiver [address] [place] [address] JOYCE ROWE MD Caregiver [address] [place] [phone] THAIS LEWIS Next Of Kin [address] [place] [address] Insurance Providers Payer Name Policy Number Subscriber Name Relationship Medicare [id number] Parul Juarez 19 Self [facility] Preferred [id number] Rafa Lewis 01 Spouse Advance Directives Directive [...] Tab PO DAILY Do not drink Apple, [place], or Grapefruit juice within 4 02/15/14 Active Mometasone Furoate 2 [place] EA NOSTRIL DAILY 02/15/14 Active Albuterol Sulfate [...] F (96.8 - 99.1) Temperature (Calculated Celsius) 36.95841 degrees C (36.0 - 37.3) Pulse Rate [...] Has specimen been collected/obtained? Y Urine Specific [place] February 15, 2014 3:00pm 1.020 - Has [...] Escherichia Coli Name: PARUL JUAREZ Unit #: [id number] : 1935 Sex: F Loc / Svc: ED DOS: 02/15/14 Signed Report #: [id number] DIAGNOSTIC IMAGING REPORT TYPE OF EXAM: HIP [...] Encounters Encounter Location Date/Time Registered Emergency Room [facility] 02/15/14 12:45pm Recent Diagnosis
--- OUTSIDE RECORDS SUMMARY | 2016-11-05 11:17 | XMS REPORT | Continuity of Care Document ---
Author Author [facility] Organization [facility] Address Unknown Phone Unavailable Support Name Relationship Address Phone JOYCE ROWE MD Caregiver [address] [place] [phone] LIA JACOB MD Caregiver [address] [place] [phone] THAIS LEWIS Next Of Kin [address] [place], [place] [id number] Insurance Providers Payer Name Policy Number Subscriber Name Relationship Medicare [id number] Parul Juarez 19 Self [facility] [id number] Rafa Lewis 01 Spouse Problems Medical Problems [...] Tab PO DAILY Do not drink Apple, [place], or Grapefruit juice within 4 02/15/14 Active Mometasone Furoate 2 [place] EA NOSTRIL DAILY 02/15/14 Active Albuterol Sulfate [...] F (96.8 - 99.1) Temperature (Calculated Celsius) 36.15044 degrees C (36.0 - 37.3) Pulse Rate [...] Has specimen been collected/obtained? Y Urine Specific [place] February 26, 2014 7:35am 1.015 - Has [...] Escherichia Coli Name: PARUL JUAREZ Unit #: [id number] : 1935 Sex: F Loc / Sv: ED DOS: 02/26/14 Signed Report #: [id number] DIAGNOSTIC IMAGING REPORT TYPE OF EXAM: ABDOMEN [...] Encounters Encounter Location Date/Time Departed Emergency Room [facility] 02/26/14 6:25am Departed Emergency Room [facility] 02/15/14 12:45pm Recent Diagnosis
--- NOTE | 2016-11-05 11:27 | NUR ---
LAB LAB AT BEDSIDE FOR BLOOD DRAW
--- NOTE | 2016-11-05 11:30 | ERPDOC ---
Departure Disposition Decision Date: November 05, 2016 Disposition Decision Time: 12:00 Disposition: 01 DISCHARGED HOME, SELF-CARE Impression Impression Impression: Primary Impression: Viral illness Additional Impression: Fatigue Fatigue type: chronic, unspecified Qualified Codes: R53.82 - Chronic fatigue , unspecified Severity: Mild Condition: Stable Seen By: Physician only Referrals: JOYCE ROWE MD (Family) 3 Days Patient Instructions: Viral Syndrome (ED) Problems/Meds/Labs Reviewed?: Yes Medications reviewed and manag: Yes Additional Instructions: You have a viral illness, which can cause you to not feel well. Take OTC medications as needed for symptom relief. Drink lots of fluids and eat what you can. Follow up with your doctor on Tuesday. Follow up care ordered?: Yes Mental Status: Alert, Occasionally Confused Scripts Ondansetron (Ondansetron Odt) 4 Mg Tab.rapdis 4 MG PO Q6HR, #20 TAB Prov: OCTOBERSHAJI DO 11/05/16 HPI - General Medical General Chief Complaint: General Stated Complaint: NOT FEELING WELL Time Seen by Provider: 11:00 Source: patient Exam Limitations: clinical condition HPI - General Medical Initial Comments 81yo woman presented to the ER by EMS for "not feeling well". Pts called EMS and gave a h/o not feeling well x3 weeks; has gotten worse over the last week. Is currently on cipro, but pt cannot tell why. was noncooperative with EMS when they arrived; has not yet presented to the ER to provide collateral information. Pt is not sure where she is or why she is here. Occurred At: home Onset: Gradual, Getting worse Duration: other Severity: mild Associated Symptoms: denies symptoms Allergies: Coded Allergies: morphine (Verified Allergy, Intermediate, rash, 11/05/16) Sulfa (Sulfonamide Antibiotics) (Verified Allergy, Unknown, 11/05/16) alendronate sodium (Verified Allergy, Unknown, 11/05/16) NSAIDS (Non-Steroidal Anti-Inflamma (Verified Adverse Reaction, Unknown, KIDNEY PROBLEMS, 11/05/16) Past History Unable to Obtain PMH Due to: clinical condition Patient Surgical History Bilateral knee replacements; R hip fixation (2010); cardiac stent colonoscopy Past Medical History Metabolic: hypertension Cardiac: A-fib, CAD Respiratory: COPD GI: GERD Female: UTI, renal insufficiency Musculoskeletal: osteoarthritis Hematologic: anemia Psychological: depression Surgical History General: colonoscopy Cardiac: cardiac cath, cardiac stent Joint: hip, knee Family History Family PMH: FOUND: cancer Vaccines Hx Influenza Vaccination: Yes (Apr 2016) Hx Pneumococcal Vaccination: Yes (JUL 07) Social History # of Packs/Tins per Day: 1 # of Years: 60 Substance Use Type: does not use Alcohol Intake: none Sexuality: male partner, other Housing: house Household Members: spouse Current Occupational Status: retired Review of Systems Unable to Obtain ROS Due to: clinical condition Physical Exam General General Nourishment: well nourished, well developed, appears stated age, no acute distress, adult, thin General Body Habitus: well groomed Vitals and Pain Weight: Kilograms: 48.000 Height (feet): 5 Height (inches): 5.00 Triage Pain Scale: RN VS reviewed by Provider: Yes Eyes (brief) Eyes Brief: found: EOMI, PERRL, not found: scleral icterus ENMT (brief) ENMT Brief: FOUND: TM clear, TM good light reflex, ear canals clear, mucosa moist, normal tonsils Neck (brief) Neck: FOUND: trachea midline, NOT FOUND: JVD, adenopathy, thyromegaly Respiratory (brief) Respiratory: FOUND: clear all silva, equal bilaterally, symmetrical, NOT FOUND : rales, wheezes Cardiovascular (brief) Cardiac: FOUND: regular rate, regular rhythm, NOT FOUND: click, gallop, murmur , pedal edema, peripheral edema, rub Capillary Refill: <2 sec Pulses: all distal extremities, equal, strong Abdomen (brief) Abdominal Brief: FOUND: bowel normo active x4, soft, NOT FOUND: distended, hepatosplenomegaly, pulsatile mass, tender Lymphatic (brief) Lymphatic Brief: NOT FOUND: adenopathy, lymphedema Musculoskeletal (brief) Musculoskeletal Brief: NOT FOUND: deformity, loss of motion, spasm, tenderness Integumentary (brief) Integumentary Brief: FOUND: pink, warm Neurologic (brief) Neurological Brief: FOUND: CN w/o gross def to obs, DTR 2/4 all extremities, gait w/o gross def to obs, motor-no gross deficits, sensory-no gross deficits, NOT FOUND: Babinski Psychiatric (brief) Psychiatric Brief: FOUND: alert, normal affect, oriented Differential Diagnoses Considering: Depression, Hypo/Hyperglycemia, Hypo/Hyperkalemia, Hypo/ Hypernatremia, Medication Effect, Metabolic, Pneumonia, UTI Progress Results/Orders Orders Procedure Category Date Status Time Iv Lock (Ed Only) EDM 11/05/16 Transmitted 11:00 Nothing By Mouth (Ed EDM 11/05/16 Transmitted Only) 11:00 Cbc W/Auto LAB 11/05/16 Complete Diff-Reflex Manual 11:00 Acetaminophen LAB 11/05/16 Complete 11:00 Salicylate LAB 11/05/16 Complete 11:00 Ua, Dip Wreflex LAB 11/05/16 Complete [employer] 11:00 Tsh - Thyroid Stim LAB 11/05/16 Complete Hormone 11:00 Magnesium LAB 11/05/16 Complete 11:00 Phosphorus LAB 11/05/16 Complete 11:00 Chest, Pa & Lateral RAD 11/05/16 Resulted 11:00 Normal Saline (Normal PHA 11/05/16 Complete Saline Iv) 11:00 Cmp - Comprehensive LAB 11/05/16 Complete Metabolic Straight Cath EDM 11/05/16 Transmitted 11:41 Bladder Scanner (Ed) EDM 11/05/16 Transmitted 11:41 Ondansetron Odt PHA 11/05/16 Complete (Prepack) (Zofran Odt 14:00 Lab Results Laboratory Tests Test 11/05/16 11:29 11/05/16 11:41 White Blood Count 3.8T/MM3 Red Blood Count 3.45M/MM3 Hemoglobin 9.7GM/DL Hematocrit 30.2% Mean Corpuscular Volume 87.5UM3 Mean Corpuscular Hemoglobin 28.1UUG Mean Corpuscular Hemoglobin Concent 32.1GM/DL RDW Standard Deviation 56.0FL Platelet Count 127T/MM3 Mean Platelet Volume 11.3UM3 Immature Granulocyte % (Auto) 0.0% Neutrophils (%) (Auto) 70.1% Lymphocytes (%) (Auto) 17.0% Monocytes (%) (Auto) 8.1% Eosinophils (%) (Auto) 4.5% Basophils (%) (Auto) 0.3% Absolute Immature Granulocyte (auto 0.00T/MM3 Absolute Neutrophils (auto) 2.7T/MM3 Absolute Lymphocytes (auto) 0.7T/MM3 Absolute Monocytes (auto) 0.3T/MM3 Absolute Eosinophils (auto) 0.2T/MM3 Absolute Basophils (auto) 0.0T/MM3 Turbidity < 20 Sodium Level 141MEQ/L Potassium Level 3.9MEQ/L Chloride Level 104MEQ/L Carbon Dioxide Level 23MEQ/L Anion Gap 14MEQ/L Blood Urea Nitrogen 22.0MG/DL Creatinine 1.0MG/DL Glomerular Filtration Rate Calc 53 BUN/Creatinine Ratio 22RATIO Glucose Level 102MG/DL Calculated Osmolality 274MOSM/KG Calcium Level 9.0MG/DL Phosphorus Level 3.2MG/DL Magnesium Level 2.0MG/DL Total Bilirubin 0.30MG/DL Icterus Index < 2 Aspartate Amino Transf (AST/SGOT) 26U/L Alanine Aminotransferase (ALT/SGPT) 30U/L Alkaline Phosphatase 73U/L Total Protein 6.9G/DL Albumin 4.0G/DL Globulin 2.9G/DL Albumin/Globulin Ratio 1.4RATIO Thyroid Stimulating Hormone (TSH) 2.07MIU/L Chemistry Specimen Hemolysis < 15 Salicylates Level < 1.0MG/DL Acetaminophen Level < 10UG/ML Urine Collection Type Straight cath Urine Color Yellow Urine Turbidity Clear Urine pH 6.5 Urine Specific [place] 1.015 Urine Protein Trace Urine Glucose (UA) Negative Urine Ketones Negative Urine Blood Negative Urine Nitrite Negative Urine Bilirubin Negative Urine Urobilinogen 0.2EU/DL Urine Leukocyte Esterase Negative Urinalysis Comment Microscopic not ind. Medications Current ED Medications Sodium Chloride (Normal Saline IV) 500 ml @ 0 mls/hr Q0M ONCE IV Last administered on 11/05/16 11:22; Start 11/05/16 at 11:00; Stop 11/05/16 at 11:02 ; Status DC Ondansetron HCl (ZOFRAN ODT (PrePack)) 1 pack O ONCE SENT HOME Last administered on 11/05/16 13:52; Start 11/05/16 at 14:00; Stop 11/05/16 at 14:01 ; Status DC Progress Progress 81yo woman with vague c/o 'not feeling well'. No one available to give collateral history. Pt has CBC pattern c/w with subacute viral illness. No significant abnormalities. Will d/c to home. Discussed dx, prognosis, tx, and need for f/u. Pt voiced understanding, but unclear how much pt will retain. Xray Xray : Xray: CXR PA/Lat Interpretation: Abnormal (No acute changes), Interpreted by SHAJI Helms DO November 05, 2016 11:30 OCTOBERSHAJI DO November 05, 2016 11:30
[2016-11-05 11:35] LABS: BASOPHILS % (AUTO) 0.3 % (0-2); EOSINOPHILS # (AUTO) 0.2 T/MM3 (0-0.5); EOSINOPHILS % (AUTO) 4.5 % (0-4); HCT - HEMATOCRIT 30.2 % (36-46); HGB - HEMOGLOBIN 9.7 GM/DL (12-16); LYMPHOCYTES # (AUTO) 0.7 T/MM3 (1-4.8); MEAN CORPUSCULAR HGB 28.1 UUG (26-34); MEAN CORPUSCULAR HGB CONC(MCHC 32.1 GM/DL (31-37); MEAN CORPUSCULAR VOLUME 87.5 UM3 (80-100); MEAN PLATELET VOLUME 11.3 UM3 (9.4-12.4); MONOCYTES # (AUTO) 0.3 T/MM3 (0-0.8); MONOCYTES % (AUTO) 8.1 % (0-9.0); NEUTROPHILS #(AUTO)-ABSOLUTE 2.7 T/MM3 (1.8-7.7); NEUTROPHILS % (AUTO) 70.1 % (33-66); RED BLOOD COUNT 3.45 M/MM3 (4.00-5.20); WBC - WHITE BLOOD COUNT 3.8 T/MM3 (4.5-11.0)
[2016-11-05 11:45] LABS: ALBUMIN/GLOBULIN RATIO 1.4 RATIO (1.1-2.2); ALKALINE PHOSPHATASE 73 U/L (38-126); ALT (SGPT) 30 U/L (9-52); ANION GAP 14 MEQ/L (5-15); AST (SGOT) 26 U/L (14-36); BUN/CREATININE RATIO 22 RATIO (6-26); CHLORIDE 104 MEQ/L (98-107); CO2 - CARBON DIOXIDE 23 MEQ/L (22-30); GLOMERULAR FILTRATION RATE 53; GLUCOSE 102 MG/DL (65-110); POTASSIUM 3.9 MEQ/L (3.6-5); SODIUM 141 MEQ/L (134-144); TOTAL PROTEIN 6.9 G/DL (6.3-8.2)
[2016-11-05 11:46] LABS: ACETAMINOPHEN < 10 UG/ML (10-30); PHOSPHORUS 3.2 MG/DL (2.5-4.5); SALICYLATE < 1.0 MG/DL (2-20)
[2016-11-05 11:48] LABS: BLOOD, URINE NEGATIVE (NEGATIVE); COLOR,URINE YELLOW (YELLOW); LEUKOCYTE ESTERASE ,URINE NEGATIVE (NEGATIVE); NITRITE,URINE NEGATIVE (NEGATIVE); UROBILINOGEN,URINE 0.2 EU/DL (NORMAL)
[2016-11-05] MEDS ORDERED: MULT1TAB69 PO (12:05)
[2016-11-05] MEDS ORDERED: LATA2.5D7 BOTH EYES (12:05)
[2016-11-05] MEDS ORDERED: AMLO5TAB2 PO (12:05)
[2016-11-05] MEDS ORDERED: LUTE10TA2 PO (12:05)
--- NOTE | 2016-11-05 12:06 | NUR ---
UPDATE PATIENT LYING IN BED, PATIENT DENIES ANY C/O OR NEEDS AT THIS TIME.
--- NOTE | 2016-11-05 12:15 | DI ---
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 Heart size, central vascularity and mediastinum are unchanged since prior study. No acute pulmonary findings are seen. Patient shows an old healed fracture of the proximal right humerus. Impression: No acute cardiopulmonary findings chronic changes as described. .
--- NOTE | 2016-11-05 12:16 | NUR ---
SPOUSE SPOUSE CALLED TO COME GET PATIENT.
[2016-11-05] MEDS ORDERED: ACET325T51 PO (12:17)
[2016-11-05] MEDS ORDERED: ONDA4TAB10 PO (12:18)
[2016-11-05 12:24] LABS: THYROID STIM HORMONE-TSH 2.07 MIU/L (0.47-4.68)
[2016-11-05 13:53] VITALS: BP 196/79; PULSE 74; RESP 16; TEMP 98.6; O2SAT 94
[2016-11-05] MEDS ORDERED: ONDANSETRON ODT 4mg #3 (PrePack) SENT HOME ONE (14:00)
== END 2016-11-05 13:53 | disposition home or self-care (01) ==
LOC: ED 10:59
DX: B34.9 Viral infection, unspecified (principal); R53.82 Chronic fatigue, unspecified; I10 Essential (primary) hypertension; I48.91 Unspecified atrial fibrillation; Z79.82 Long term (current) use of aspirin; Z79.899 Other long term (current) drug therapy
CPT/HCPCS: 36415; 51701; 71020; 80053; 80307; 81003; 83735; 84100; 84443; 85025; 96360; 99284; J7030

== ENCOUNTER 2017-06-11 23:47 | Inpatient (IN) ==
[2017-06-11] MEDS ORDERED: NS 1,000 ML IV ONE (23:57)
[2017-06-11] MEDS ORDERED: LEVOFLOXACIN PB 750 MG/150 ML BAG IV ONE (23:57)
[2017-06-11] MEDS ORDERED: SALINE FLUSH 10ml SYRINGE IVF PRN (23:57)
[2017-06-12] MEDS ORDERED: DiltiaZEM 25 MG/5 ML INJECTION IVP ONE (01:01)
--- NOTE | 2017-06-12 01:09 | Emergency Department Report ---
Altered Mental Status HPI - General Chief Complaint: Altered Mental Status Stated Complaint: Altered Metal Status. Time Seen by Provider: 06/11/17 23:57 Source: family, EMS, old records reviewed Mode of arrival: EMS Limitations: altered mental status - History of Present Illness HPI narrative: 81yo woman presented to the ER by EMS for evaluation of AMS. Pt is well-known to this facility; frequently presents with COPD exacerbations and/or UTIs. For the past several days, pt has had fevers and been altered. finally called EMS for pt to be transported for evaluation. On initial presentation, pt was wearing 4 incontinence briefs and was covered in her own urine and feces. Pt smelled strongly of incontinence and has likely been in her own filth for several days. UA was obtained by straight cath and was grossly infected. EMS believes that pt has urosepsis (initial temp was 104'F). MD complaint: altered mental status Onset (ago): day(s) Timing confirmed by: spouse Severity: similar to previous episodes Consistency of symptoms: constant Context: history of similar presentation Associated symptoms: denies other symptoms Treatments prior to arrival: IV fluid - Related Data Home Medications Medication Instructions Recorded Confirmed Hydrocodone/APAP 5/325 [[place] 1 tab PO QID PRN 03/17/17 06/12/17 5/325] Metoclopramide HCl [Reglan] 10 mg PO BID 03/17/17 03/17/17 Mirtazapine [Remeron] 15 mg PO HS 03/17/17 03/17/17 dilTIAZem HCl [Diltiazem ER] 360 mg PO DAILY 03/17/17 06/12/17 Omeprazole [Prilosec] 1 cap PO ACBID 06/12/17 06/12/17 Ondansetron [Ondansetron Odt] 4 mg PO Q6HR PRN 06/12/17 06/12/17 Allergies Allergy/AdvReac Type Severity Reaction Status Date / Time morphine Allergy Intermediate rash Verified 06/12/17 03:08 alendronate sodium Allergy Unknown Verified 06/12/17 03:08 Sulfa (Sulfonamide Allergy Unknown Verified 06/12/17 03:08 Antibiotics) NSAIDS (Non-Steroidal AdvReac Unknown KIDNEY Verified 06/12/17 03:08 Anti-Inflamma PROBLEMS Review of Systems Limitations: ROS unobtainable due to patient's medical condition PFS Patient Stated Medical History Dementia Yes Hypertension Yes Chronic Obstructive Pulmonary Yes Disease (COPD) Hx Urinary Tract Infection Yes Post Menopausal Yes Surgical History: Bilateral knee replacements; R hip fixation (2010);. cardiac stent. colonoscopy - Social History Smoking status: Current every day smoker Physical Exam - Limitations Limitations: no limitations - General General appearance: alert, cachectic - Normal Exams: Head:: Normocephalic without trauma Eyes:: Pupils are PERRLA w/ EOMI, No scleral icterus, irritation, or foreign bodies noted ENMT:: No facial trauma, nasal exudates, pharyngeal erythema, or exudates are noted Neck:: Full range of motion, without adenopathy Chest/Respirations:: Clear all silva, with good airflow, and symmetry bilaterally Lymphatic:: No lymphadenopathy Musculoskeletal:: No tenderness, or deformity noted Integumentary:: No rashes, hives, or bruising noted Neurological:: Patient is alert - Cardiovascular Cardiovascular exam: Present: tachycardia, irregular rhythm, normal heart sounds. Absent: regular rate, normal rhythm, systolic murmur, diastolic murmur - Neurological Exam Neurological exam: Present: CN II-XII intact, reflexes normal. Absent: normal gait, motor sensory deficit - Psychiatric Psychiatric exam: Present: flat affect Course - Consultations Consultation #1: [place] [facility]: Will accept for admission and further eval/treatment. Time: 01:29 Vital Signs Temperature 102.1 F H 06/11/17 23:47 Pulse Rate 105 H 06/11/17 23:47 Respiratory Rate 24 06/11/17 23:47 Blood Pressure 165/92 H 06/11/17 23:47 Pulse Oximetry 88 L 06/11/17 23:47 Temperature 102.1 F H 06/11/17 23:47 Pulse Rate 93 06/12/17 00:44 Respiratory Rate 26 H 06/12/17 00:44 Blood Pressure 206/82 H 06/12/17 00:44 Pulse Oximetry 94 06/12/17 00:44 Altered Mental Status - MDM Narrative Medical decision making narrative: Pt with UTI and paroxysmal a-fib. Improved following IV diltiazem. Discussed with hospitalist, who will admit for further treatment and stabilization. - Differential Diagnosis Likely: altered mental status, delirium, dementia, hypoglycemia, hyponatremia, sepsis - Medical Records Attestation: I reviewed the patient's medical records. - Lab Data Attestation: I reviewed the patient's lab results. Result diagrams: 06/12/17 00:31 06/12/17 00:31 Lab Results 06/12/17 06/12/17 06/12/17 Range/Units 00:05 00:31 00:31 WBC 6.7 (4.5-11.0) T/MM3 RBC 3.42 L (4.00-5.20) M/MM3 Hgb 9.4 L (12-16) GM/DL Hct 29.4 L (36-46) % MCV 86.0 (80-100) UM3 MCH 27.5 (26-34) UUG MCHC 32.0 (31-37) GM/DL RDW Std Deviation 53.0 H (36.9-50.2) FL Plt Count 119 L (130-400) T/MM3 MPV 11.9 (9.4-12.4) UM3 Immature Gran % (Auto) Not performed Neut % (Auto) Not performed Lymph % (Auto) Not performed [place] % (Auto) Not performed Eos % (Auto) Not performed Baso % (Auto) Not performed Neut # (Auto) Not performed Lymph # (Auto) Not performed [place] # (Auto) Not performed Eos # (Auto) Not performed Baso # (Auto) Not performed Abs Immat Gran (auto) Not performed Neutrophils % (Manual) 89.0 H (33-66) % Band Neutrophils % 8.0 H (0-6) % Lymphocytes % (Manual) 1.0 L (23-45) % Monocytes % (Manual) 2.0 (0-9.0) % Neutrophils # (Manual) 6.0 (1.8-7.7) T/MM3 Band Neutrophils # 0.5 T/MM3 Lymphocytes # (Manual) 0.1 L (1-4.8) T/MM3 Monocytes # (Manual) 0.1 (0-0.8) T/MM3 Poikilocytosis 1+ Anisocytosis 1+ RBC Morph Comment Abnormal Turbidity < 20 (0-20) Sodium 140 (134-144) MEQ/L Potassium 4.0 (3.6-5) MEQ/L Chloride 106 (98-107) MEQ/L Carbon Dioxide 22 (22-30) MEQ/L Anion Gap 12 (5-15) MEQ/L BUN 20.0 H (7-17) MG/DL Creatinine 1.0 (0.7-1.2) MG/DL GFR Calculation 53 BUN/Creatinine Ratio 20 (6-26) RATIO Glucose 108 (65-110) MG/DL Calculated Osmolality 273 (261-280) MOSM/KG Calcium 8.5 (8.4-10.2) MG/DL Icterus Index < 2 (0-7) Lipase 121 (23-300) U/L Plasma Lactate 1.1 (0.6-2.2) MMOL/L Specimen Hemolysis < 15 (0-25) Ur Collection Type Urine, catheter Urine Color Yellow (YELLOW) Urine Clarity Sl cloudy Urine pH 6.0 (5.0-8.0) Ur Specific [place] 1.020 (1.015-1.025) Urine Protein 1+ A (NEGATIVE) Urine Glucose (UA) Negative (NEGATIVE) Urine Ketones Trace A (NEGATIVE) Urine Occult Blood 2+ A (NEGATIVE) Urine Nitrate Positive A (NEGATIVE) Urine Bilirubin Negative (NEGATIVE) Urine Urobilinogen 0.2 (NORMAL) EU/DL Ur Leukocyte Esterase 1+ A (NEGATIVE) Urine RBC None seen (0-3) /HPF Urine WBC None seen (0-5) /HPF Ur Squamous Epith Cells 0-5 Amorphous Sediment Moderate Urine Bacteria 1+ H (NEGATIVE) Ur Culture Indicated? Cult reflexed &setup Disposition Clinical Impression: Altered mental status Qualifiers: Altered mental status type: delirium Qualified Code(s): R41.0 - Disorientation , unspecified Dementia Qualifiers: Dementia type: unspecified type Dementia behavioral disturbance: with behavioral disturbance Qualified Code(s): F03.91 - Unspecified dementia with behavioral disturbance UTI (urinary tract infection) Qualifiers: Urinary tract infection type: acute cystitis Hematuria presence: with hematuria Qualified Code(s): N30.01 - Acute cystitis with hematuria A-fib Qualifiers: Atrial fibrillation type: paroxysmal Qualified Code(s): I48.0 - Paroxysmal atrial fibrillation Hypertension Qualifiers: Hypertension type: unspecified Qualified Code(s): I10 - Essential (primary) hypertension Disposition: 02 To [facility] [place] Acute Care Condition: Improved Time of Disposition: 01:32 - Seen By: physician
[2017-06-12] MEDS ORDERED: DILTIAZEM 60 MG PO ONE (01:26)
[2017-06-12] MEDS ORDERED: SALINE FLUSH 10ml SYRINGE IVF PRN (01:27)
[2017-06-12] MEDS ORDERED: ACETAMINOPHEN 325 MG TABLET PO PRN (03:06)
[2017-06-12] MEDS ORDERED: ONDANSETRON 4 MG/2 ML INJECTION IVP PRN (03:06)
[2017-06-12 03:31] VITALS: BMI 17.1
--- NOTE | 2017-06-12 03:42 | History & Physical Report ---
History of Present Illness Date: 06/12/17 Chief complaint: Altered mental status HPI: 81 yo F with PMH of dementia who lives at home with her presented to the ED for reports of AMS. She has had multiple trips to the ED for COPD exacerbations and UTI's. Patients reports fevers and AMS for the past several days. On initial presentation, pt was wearing 4 incontinence briefs and was covered in her own urine and feces. Pt smelled strongly of incontinence and has likely been in her own filth for several days. UA was obtained by straight cath and was grossly infected. Patient initial temp for EMS was 104. She was given IV levaquin in the ED, she then developed A. Fib with RVR. Patient is supposed to take cardizem 360mg PO QD, but it is unclear if she has taken this today. She was given 10mg IV cardizem in the ED and this brought her HR down, she was then given 60mg PO. She was admitted for continued treatment. Review of Systems ROS unobtainable: due to mental status [facility] Surgical History: Bilateral knee replacements; R hip fixation (2010);. cardiac stent. colonoscopy - Social History Smoking status: Current every day smoker Medications Home Medications Medication Instructions Recorded Confirmed Type Hydrocodone/APAP 5/325 [[place] 1 tab PO QID PRN 03/17/17 06/12/17 History 5/325] Metoclopramide HCl [Reglan] 10 mg PO BID 03/17/17 03/17/17 History Mirtazapine [Remeron] 15 mg PO HS 03/17/17 03/17/17 History dilTIAZem HCl [Diltiazem ER] 360 mg PO DAILY 03/17/17 06/12/17 History Omeprazole [Prilosec] 1 cap PO ACBID 06/12/17 06/12/17 History Ondansetron [Ondansetron Odt] 4 mg PO Q6HR PRN 06/12/17 06/12/17 History Allergies Allergy/AdvReac Type Severity Reaction Status Date / Time morphine Allergy Intermediate rash Verified 06/12/17 03:08 alendronate sodium Allergy Unknown Verified 06/12/17 03:08 Sulfa (Sulfonamide Allergy Unknown Verified 06/12/17 03:08 Antibiotics) NSAIDS (Non-Steroidal AdvReac Unknown KIDNEY Verified 06/12/17 03:08 Anti-Inflamma PROBLEMS Exam Vital Signs: Temperature 102.1 F H 06/11/17 23:47 Pulse Rate 147 H 06/12/17 02:00 Respiratory Rate 24 06/12/17 02:00 Blood Pressure 121/78 06/12/17 02:00 Pulse Oximetry 93 06/12/17 02:00 Telemetry Rhythm: A-fib Height/Weight/BMI: Height 1.7 m Weight 49.6 kg Body Mass Index 17.1 - Constitutional Present: disheveled - Routine Respiratory Exam Present: CTA bilaterally. Absent: wheezes - Routine Cardiovascular Exam Present: RRR. Absent: murmur - Routine Abdominal Exam Present: soft, normoactive bowel sounds, non distended. Absent: tenderness - Routine Extremities Exam Present: normal capillary refill Results - Labs CBC & Chem 7: 06/12/17 00:31 06/12/17 00:31 Assessment and Plan (1) Sepsis Current visit: Yes Status: Acute (2) Altered mental status Current visit: Yes Status: Acute (3) Dementia Current visit: Yes Status: Acute (4) UTI (urinary tract infection) Current visit: Yes Status: Acute (5) A-fib Current visit: Yes Status: Acute (6) Hypertension Current visit: Yes Status: Acute Assessment and Plan: Patient started on sepsis pathway. Urine and blood CX sent in the ED. Patient given Levaquin for ABX coverage. NS 100cc/hr for fluids now. Patient monitored on tele, will not given 360mg ER Cardizem at this time as it is unclear whether she has taken this today or not. My guess is that she hasn't. Consult social work, consider call to adult protective services in AM. Will contine to adjust HR as needed with carizem IV pushes. Restart home meds in AM after pharmacy has reviewed and list is up to date. DVT Prophylaxis: SCD's - Physician Narrative Physician: Pushpa Garcia MD Narrative: Date: 06/12/17 Time: 1300 See H&P dictated later in the day. Sepsis Assessment - Evaluation SIRS Criteria: temperature > 100.9, pulse > 90 beats/minute Hospital Course Summary Disclaimer: The visit summary below is not to be considered part of the above Progress Note.
[2017-06-12] MEDS: NS 1,000 ML IV SCH ×2 (03:57→20:19)
--- NOTE | 2017-06-12 13:14 | History & Physical Report ---
History of Present Illness Date: 06/12/17 Chief complaint: altered mental status HPI: 81 yo F with PMH of dementia who lives at home with her presented to the ED for reports of AMS. is not available to provide supplemental history and does not answer the phone at home and Mrs. Tanesha Crump reports only that she feels sick and cannot provide any details. She has had multiple trips to the ED for COPD exacerbations, falls, and UTI's. Per ER records the patients reports fevers and AMS for the past several days. On initial presentation, pt was wearing 4 incontinence briefs and was covered in her own urine and feces. Pt smelled strongly of incontinence and has likely been in her own filth for several days. UA was obtained by straight cath and was cloudy and suspected of being infected. Patient initial temp for EMS was 104 and 102.1 axillary on arrival in the ER. She was given IV levaquin in the ED, she then developed a tachyarrhythmia. Patient is supposed to take Cardizem 360mg PO QD but it's unknown what medications she has taken recently. She was given 10mg IV diltiazem in the ED with stabilization of the heart rate after which 60 mg of oral diltiazem was administered and she was admitted to the ICU for management. The patient denies all specific symptoms asked indicating only that she feels sick; after coughing she acknowledged that she has had a little cough and she's unsure how long it's been present. She reports that she is ambulatory and denied urinary incontinence. Patient asked when she would be able to go home on a number of occasions during our discussion. Review of Systems ROS unobtainable: due to mental status (patient denies all symptoms asked of her clearly contradicting reality.) PFSH (1) HTN (hypertension) (2) Atrial fibrillation (3) Thrombocytopenia (4) Anemia (5) Ambulatory dysfunction (6) CKD (chronic kidney disease), stage III (7) OA (osteoarthritis) (8) GERD (gastroesophageal reflux disease) (9) Depression (10) CAD (coronary artery disease) (11) Osteoporosis (12) Tobacco dependence (13) Poor social situation (14) Frequent falls (15) History of pneumonia (16) History of UTI (17) Dementia (18) COPD (chronic obstructive pulmonary disease) Surgical History: Bilateral knee replacements; R hip fixation (2010);. cardiac stent. colonoscopy - Social History Smoking status: Current every day smoker Packs per day: 1 Substance use type: does not use Alcohol intake frequency: does not drink Household members: spouse Social history: PCP unknown-patient reports Dr. Whyte although she was fired from Dr. Whyte office over a year ago because her was verbally abusive with staff. Medical records were subsequently released to [facility] provider from the group was seeing her at home for a period of time but it's unclear if she is still receiving services through them. Alternate decision maker reported to be the patient's . CODE STATUS-full code or limited code in past records here; DO NOT RESUSCITATE listed in [facility] records. Medications Home Medications Medication Instructions Recorded Confirmed Type Hydrocodone/APAP 5/325 [Crescent 1 tab PO QID PRN 03/17/17 06/12/17 History 5/325] Metoclopramide HCl [Reglan] 10 mg PO BID 03/17/17 03/17/17 History Mirtazapine [Remeron] 15 mg PO HS 03/17/17 03/17/17 History dilTIAZem HCl [Diltiazem ER] 360 mg PO DAILY 03/17/17 06/12/17 History Omeprazole [Prilosec] 1 cap PO ACBID 06/12/17 06/12/17 History Ondansetron [Ondansetron Odt] 4 mg PO Q6HR PRN 06/12/17 06/12/17 History Allergies Allergy/AdvReac Type Severity Reaction Status Date / Time morphine Allergy Intermediate rash Verified 06/12/17 03:08 alendronate sodium Allergy Unknown Verified 06/12/17 03:08 Sulfa (Sulfonamide Allergy Unknown Verified 06/12/17 03:08 Antibiotics) NSAIDS (Non-Steroidal AdvReac Unknown KIDNEY Verified 06/12/17 03:08 Anti-Inflamma PROBLEMS Exam Vital Signs: Temperature 99.9 F 06/12/17 10:00 Pulse Rate 75 06/12/17 10:30 Respiratory Rate 20 06/12/17 10:30 Blood Pressure 143/65 H 06/12/17 10:30 Pulse Oximetry 97 06/12/17 10:30 EXAM: General-drowsy, confused HEENT-PERRL, EOMI without nystagmus, conjugate gaze, conjunctiva clear, sclera anicteric, facial structures symmetric, moderate temporal wasting present, oropharynx with dry membranes, neck supple and without adenopathy Lungs-decreased inspiratory effort present, coarse breath sounds at the bases L> R, no wheezing Cardiac-rhythm slightly irregular, S1-S2 Abd-soft, nontender, diminished bowel sounds Ext-cachectic, no edema Skin-scattered bruising, no wounds on exposed skin surfaces-back/buttocks not evaluated Neuro-moving all extremities spontaneously, cranial nerves 3-12 grossly intact, detect sensation 4 extremities, generalized weakness, drift both upper extremities right greater than left Psych-confused, oriented to [facility] but not year - Height/Weight/BMI: Height 1.7 m Weight 49.6 kg Body Mass Index 17.1 Results - Labs CBC & Chem 7: 06/12/17 00:31 06/12/17 00:31 Labs: S89, B8, L1, M2 Lipase 121 lactic acid 1.1-1.2; procalcitonin 0.15 UA +1 protein, trace ketones, +2 blood, positive nitrites, +1 leukocyte esterase , no red cells, no WBCs, 0-5 epithelial cells, +1 bacteria - ECG Data Tracing #1 I reviewed this ECG and interpreted as documented below: (sinus rhythm, no acute changes, no significant change from EKG May 2016) - Imaging and Cardiology Chest x-ray Status: image reviewed by me (NAD) Assessment and Plan (1) Sepsis Current visit: Yes Status: Acute (2) Altered mental status Current visit: Yes Status: Acute (3) UTI (urinary tract infection) Current visit: Yes Status: Acute Assessment and Plan: Impression: Altered mental status Sepsis UTI, probable Dementia Tachycardia, resolved History atrial fibrillation COPD Hypertension Chronic kidney disease, stage III Chronic anemia, thrombocytopenia Ambulatory dysfunction Weight loss, malnutrition Plan: Patient is admitted with altered mental status and fever. Urine source suggested by description in the emergency room although UA without pyuria. Cultures pending. Treated with Levaquin in the emergency room due to altered mental status will convert to Rocephin pending cultures. Fever and tachycardia/ tachypnea are really the only criteria present for sepsis on presentation and tachycardia may be due to transient cardiac arrhythmia unrelated to infection although there is no initial EKG to clarify what the rhythm was on presentation. Lactic acid and procalcitonin were reassuringly low. The patient can provide no information regarding symptoms prior to admission and is not presently available to provide supplemental history. Home situation does not appear to be safe based on 's presentation-case management consulted, Adult Protective Services should be notified based on described patient condition. Current list of medications has been obtained from the patient's pharmacy and will be continued. Review of charts indicates 8 kg weight loss since April 2015. Nutritional parameters will be evaluated. The patient's stepson called early this afternoon indicating that Mr. Almendarez has hearing loss and cannot speak on the phone well and is exhausted as the patient has been up nights recently. The stepson reported history of chronic urinary incontinence, reported the patient is been nonambulatory for years and is either in a wheelchair or in bed. He additionally reported the patient hasn't smoked for several months despite her history of continued tobacco use. He indicated that he thinks caring for the patient has become too much for his father. Patient continues to be cared for by the providers of [facility] although the organization has undergone a name change; the contact number he has is [phone] and he could not remember the name of her current provider. - Physician Narrative Narrative: Date: 06/12/17 Time: 1304 Sepsis Assessment - Evaluation SIRS Criteria: temperature > 100.9, pulse > 90 beats/minute, RR > 20 Hospital Course Summary Disclaimer: The visit summary below is not to be considered part of the above Progress Note. Hospital Course: 06/12/17 13:54 Patient is admitted with altered mental status and fever. Urine source suggested by description in the emergency room although UA without pyuria. Cultures pending. Treated with Levaquin in the emergency room due to altered mental status will convert to Rocephin pending cultures. Fever and tachycardia/ tachypnea are really the only criteria present for sepsis on presentation and tachycardia may be due to transient cardiac arrhythmia unrelated to infection although there is no initial EKG to clarify what the rhythm was on presentation. Lactic acid and procalcitonin were reassuringly low. The patient can provide no information regarding symptoms prior to admission and is not presently available to provide supplemental history. Home situation does not appear to be safe based on 's presentation-case management consulted, Adult Protective Services should be notified based on described patient condition. Current list of medications has been obtained from the patient's pharmacy and will be continued. Review of charts indicates 8 kg weight loss since April 2015. Nutritional parameters will be evaluated.
--- NOTE | 2017-06-12 13:48 | XRay Report ---
Indication: sepsis, hypoxia PROCEDURE: XR chest 1V: Encounter: Initial Comparison: November 05, 2016 Findings: Lungs are grossly clear. Overlying monitoring leads. No pleural effusion or pneumothorax. Heart size and mediastinal contours are stable allowing for rotation. Tortuous ectatic thoracic aorta. Pulmonary vascularity appears normal. Impression: Stable chest without acute cardiopulmonary disease. .
[2017-06-12] MEDS: CEFTRIAXONE 1 G in NS 100 ML IV SCH (16:53)
[2017-06-12] MEDS: OMEPRAZOLE 20 MG CAPSULE PO SCH (16:54)
[2017-06-12] MEDS: DiltiaZEM CD 360 MG CAPSULE PO SCH (16:54)
[2017-06-13] MEDS: OMEPRAZOLE 20 MG CAPSULE PO SCH ×2 (06:01→18:00)
[2017-06-13] MEDS: DiltiaZEM CD 360 MG CAPSULE PO SCH (09:10)
[2017-06-13] MEDS: NS 1,000 ML IV SCH ×2 (09:44→23:19)
[2017-06-13] MEDS: CEFTRIAXONE 1 G in NS 100 ML IV SCH (12:59)
--- NOTE | 2017-06-13 14:44 | Progress Note ---
- Date 06/13/17 Subjective: Pt alert to person and place only. Reports she is doing well. Denies any n/v/d, f/c, cp or sob. Reports she is doing well overall and has no acute complaints. Objective Vital signs: Temperature 96.8 F 06/13/17 11:42 Pulse Rate 77 06/13/17 11:42 Respiratory Rate 24 06/13/17 11:42 Blood Pressure 158/71 H 06/13/17 11:42 Pulse Oximetry 91 06/13/17 11:42 Height/Weight/BMI: Height 5 ft 7 in Weight 47.7 kg Body Mass Index 17.1 - Constitutional Present: no acute distress - Routine HEENT Exam Head: Present: normocephalic, atraumatic Eye: Present: EOMI, PERRL - Routine Respiratory Exam Present: CTA bilaterally. Absent: wheezes, crackles - Routine Cardiovascular Exam Present: no murmur, irregular rhythm - Routine Abdominal Exam Present: soft, non distended, non tender - Routine Extremities Exam Present: no edema. Absent: cyanosis, clubbing - Routine Skin Exam Present: intact, dry. Absent: erythema - Routine Neurological Exam Present: alert Results - Labs CBC & Chem 7: 06/13/17 04:14 06/13/17 04:14 Assessment and Plan (1) Altered mental status Current visit: Yes Status: Acute (2) UTI (urinary tract infection) Current visit: Yes Status: Acute (3) Sepsis Current visit: Yes Status: Acute Assessment and Plan: Sepsis 2/2 UTI -Much improved -Cont. Rocephin D2 Dementia -Seems to be back at baseline -Step son is DPOA Hypoxemia -Requiring 2L O2, likely chronic as hx of COPD -CXR without acute etiology -RCAT, cont. O2 as needed COPD -No inhalers listed on home meds list? Afib -Cont. home diltiazem -No anti-coagulation? -CHADVASC 4 Chronic Anemia/Thrombocytopenia -Likely MDS but unclear if previous work up -Stable, will monitor for now CKD -Stable, monitor HTN -On diltiazem? Ppx -SCDs - Physician Narrative Narrative: Date: 06/13/17 Time: 1411 Hospital Course Summary Disclaimer: The visit summary below is not to be considered part of the above Progress Note. Hospital Course: 06/12/17 13:54 Patient is admitted with altered mental status and fever. Urine source suggested by description in the emergency room although UA without pyuria. Cultures pending. Treated with Levaquin in the emergency room due to altered mental status will convert to Rocephin pending cultures. Fever and tachycardia/ tachypnea are really the only criteria present for sepsis on presentation and tachycardia may be due to transient cardiac arrhythmia unrelated to infection although there is no initial EKG to clarify what the rhythm was on presentation. Lactic acid and procalcitonin were reassuringly low. The patient can provide no information regarding symptoms prior to admission and is not presently available to provide supplemental history. Home situation does not appear to be safe based on 's presentation-case management consulted, Adult Protective Services should be notified based on described patient condition. Current list of medications has been obtained from the patient's pharmacy and will be continued. Review of charts indicates 8 kg weight loss since April 2015. Nutritional parameters will be evaluated.
[2017-06-14] MEDS ORDERED: DiltiaZEM 25 MG/5 ML INJECTION IVP PRN (00:39)
[2017-06-14] MEDS ORDERED: DiltiaZEM Drip 125 MG in NS 125 ML IV SCH (03:45)
[2017-06-14] MEDS: OMEPRAZOLE 20 MG CAPSULE PO SCH ×2 (06:04→19:43)
[2017-06-14] MEDS ORDERED: ESMOLOL DRIP 2,500 MG/250 ML BAG IV PRN (08:50)
[2017-06-14] MEDS: DiltiaZEM CD 360 MG CAPSULE PO SCH (09:02)
--- NOTE | 2017-06-14 09:58 | Progress Note ---
- Date 06/14/17 Subjective: Pt reports she's doing well. Denies any cp, sob, n/v/d, f/c. Denies any palpitations. Pt had RVR last night but reports she felt fine. She feels the same as yesterday. Objective Vital signs: Temperature 98.0 F 06/14/17 04:00 Pulse Rate 115 H 06/14/17 06:45 Respiratory Rate 30 H 06/14/17 06:45 Blood Pressure 165/81 H 06/14/17 06:45 Pulse Oximetry 95 06/14/17 06:45 Height/Weight/BMI: Height 5 ft 7 in Weight 47.5 kg Body Mass Index 17.1 - Constitutional Present: no acute distress - Routine HEENT Exam Head: Present: normocephalic, atraumatic Eye: Present: EOMI, PERRL ENT: Present: mucous membranes moist - Routine Respiratory Exam Present: CTA bilaterally. Absent: wheezes - Routine Cardiovascular Exam Present: no murmur, irregular rhythm, irregularly irregular - Routine Abdominal Exam Present: soft, non distended, non tender - Routine Extremities Exam Present: no edema. Absent: cyanosis, clubbing - Routine Skin Exam Present: intact, dry. Absent: erythema - Routine Neurological Exam Present: alert Results - Labs CBC & Chem 7: 06/14/17 04:30 06/14/17 04:30 Assessment and Plan (1) Altered mental status Current visit: Yes Status: Acute (2) UTI (urinary tract infection) Current visit: Yes Status: Acute (3) Sepsis Current visit: Yes Status: Acute Assessment and Plan: Sepsis 2/2 UTI -Much improved -Cont. Rocephin D3 -Awaiting cx's to switch to PO Influenza -Influenza type A positive -Tamiflu + Supportive therapy Dementia -Seems to be back at baseline -Step son is DPOA - at home cannot properly take care of pt so will try to have family discussion about best discharge plan Hypoxemia -Requiring 2L O2, likely chronic as hx of COPD? -CXR without acute etiology -RCAT, cont. O2 as needed COPD? -No inhalers listed on home meds list? -Significant smoking hx Afib w RVR -Hx of afib, went into rvr last night -Cont. home diltiazem, started esmolol drip -Likely 2/2 hypokalemia, will supplement -No anti-coagulation? high fall risk maybe? -CHADVASC 4 Hypokalemia -Likely causing rvr flare up of afib -Replace and monitor Chronic Anemia/Thrombocytopenia -Likely MDS but unclear if previous work up -Stable, will monitor for now CKD -Stable, monitor HTN -On diltiazem? Ppx -SCDs - Physician Narrative Narrative: Date: 06/14/17 Time: 0951 Hospital Course Summary Disclaimer: The visit summary below is not to be considered part of the above Progress Note. Hospital Course: 06/12/17 13:54 Patient is admitted with altered mental status and fever. Urine source suggested by description in the emergency room although UA without pyuria. Cultures pending. Treated with Levaquin in the emergency room due to altered mental status will convert to Rocephin pending cultures. Fever and tachycardia/ tachypnea are really the only criteria present for sepsis on presentation and tachycardia may be due to transient cardiac arrhythmia unrelated to infection although there is no initial EKG to clarify what the rhythm was on presentation. Lactic acid and procalcitonin were reassuringly low. The patient can provide no information regarding symptoms prior to admission and is not presently available to provide supplemental history. Home situation does not appear to be safe based on 's presentation-case management consulted, Adult Protective Services should be notified based on described patient condition. Current list of medications has been obtained from the patient's pharmacy and will be continued. Review of charts indicates 8 kg weight loss since April 2015. Nutritional parameters will be evaluated. 06/14/17 09:59 Pt went into afib with rvr overnight and so was transferred to icu to start cardizem drip. Pt is asymptomatic and vitals are stable. Switched pt to esmolol drip since pt is already on cardizem PO. Will fix underlying hypokalemia and try to titrate off esmolol. Otherwise pt is doing well and stable. Plan is to have family discussion about discharge planning as pt lives with who likely is not able to take care of her.
[2017-06-14] MEDS: NS 1,000 ML IV SCH ×2 (12:40→21:52)
[2017-06-14] MEDS: CEFTRIAXONE 1 G in NS 100 ML IV SCH (15:45)
[2017-06-14] MEDS ORDERED: HALOPERIDOL 5 MG/ML INJECTION IVP ONE (22:58)
[2017-06-15] MEDS ORDERED: DiltiaZEM IR 30 MG TABLET PO ONE (01:36)
[2017-06-15] MEDS: OMEPRAZOLE 20 MG CAPSULE PO SCH ×2 (05:59→17:48)
--- NOTE | 2017-06-15 10:04 | Progress Note ---
- Date 06/15/17 Subjective: Pt reports she's doing well. Denies any cp, sob, n/v/d, f/c, or palpitations. Objective Vital signs: Temperature 98 F 06/15/17 04:15 Pulse Rate 122 H 06/15/17 08:00 Respiratory Rate 24 06/15/17 06:00 Blood Pressure 178/81 H 06/15/17 06:00 Pulse Oximetry 96 06/15/17 06:00 Height/Weight/BMI: Height 5 ft 7 in Weight 43.2 kg Body Mass Index 17.1 - Constitutional Present: no acute distress, well nourished - Routine HEENT Exam Head: Present: normocephalic, atraumatic Eye: Present: EOMI, PERRL ENT: Present: mucous membranes moist - Routine Respiratory Exam Present: CTA bilaterally. Absent: wheezes, crackles - Routine Cardiovascular Exam Present: no murmur, irregularly irregular - Routine Abdominal Exam Present: soft, non distended, non tender - Routine Extremities Exam Present: no edema. Absent: cyanosis, clubbing - Routine Skin Exam Present: intact, dry. Absent: erythema Results - Labs CBC & Chem 7: 06/14/17 04:30 06/15/17 04:36 Assessment and Plan (1) Altered mental status Current visit: Yes Status: Acute (2) UTI (urinary tract infection) Current visit: Yes Status: Acute (3) Sepsis Current visit: Yes Status: Acute Assessment and Plan: Sepsis 2/2 UTI -Resolved -Cont. Rocephin D4/5 days -Will finish out course tomorrow Influenza -Influenza type A positive -Tamiflu + Supportive therapy Dementia -Seems to be back at baseline -Step son is DPOA - at home cannot properly take care of pt so will try to have family discussion about best discharge plan Hypoxemia -Requiring 2L O2, likely chronic as hx of COPD? -CXR without acute etiology -RCAT, cont. O2 as needed COPD? -No inhalers listed on home meds list? -Significant smoking hx Afib w RVR -Hx of afib, has been avr on/off in hospital -Cont. home diltiazem, d/c esmolol drip -Started metoprolol 12.5 mg BID -No anti-coagulation? high fall risk maybe? -CHADVASC 4 Hypokalemia -Replace and monitor Chronic Anemia/Thrombocytopenia -Likely MDS but unclear if previous work up -Stable, will monitor for now CKD -Stable, monitor HTN -On diltiazem? Ppx -SCDs - Physician Narrative Narrative: Date: 06/15/17 Time: 0959 Hospital Course Summary Disclaimer: The visit summary below is not to be considered part of the above Progress Note. Hospital Course: 06/12/17 13:54 Patient is admitted with altered mental status and fever. Urine source suggested by description in the emergency room although UA without pyuria. Cultures pending. Treated with Levaquin in the emergency room due to altered mental status will convert to Rocephin pending cultures. Fever and tachycardia/ tachypnea are really the only criteria present for sepsis on presentation and tachycardia may be due to transient cardiac arrhythmia unrelated to infection although there is no initial EKG to clarify what the rhythm was on presentation. Lactic acid and procalcitonin were reassuringly low. The patient can provide no information regarding symptoms prior to admission and is not presently available to provide supplemental history. Home situation does not appear to be safe based on 's presentation-case management consulted, Adult Protective Services should be notified based on described patient condition. Current list of medications has been obtained from the patient's pharmacy and will be continued. Review of charts indicates 8 kg weight loss since April 2015. Nutritional parameters will be evaluated. 06/14/17 09:59 Pt went into afib with rvr overnight and so was transferred to icu to start cardizem drip. Pt is asymptomatic and vitals are stable. Switched pt to esmolol drip since pt is already on cardizem PO. Will fix underlying hypokalemia and try to titrate off esmolol. Otherwise pt is doing well and stable. Plan is to have family discussion about discharge planning as pt lives with who likely is not able to take care of her. 06/15/17 10:04 Pt's afib rvr seems to be on/off, electrolyte imbalance and acute illness likely contributing. Transitioned from esmolol drip to metoprolol PO. Will try to transfer pt out of ICU today. Pt is asymptomatic.
[2017-06-15] MEDS: DiltiaZEM CD 360 MG CAPSULE PO SCH (10:26)
[2017-06-15] MEDS: CEFTRIAXONE 1 G in NS 100 ML IV SCH (14:34)
[2017-06-16] MEDS: OMEPRAZOLE 20 MG CAPSULE PO SCH ×2 (06:51→07:00)
[2017-06-16] MEDS: DiltiaZEM CD 360 MG CAPSULE PO SCH (08:56)
[2017-06-16 11:20] VITALS: BP 158/73; PULSE 73; RESP 18; TEMP 96.2; O2SAT 98
[2017-06-16] MEDS ORDERED: NS FLUSH BAG 500ml IV PRN (13:51)
[2017-06-16] MEDS ORDERED: SALINE FLUSH 10ml SYRINGE IVF PRN (13:51)
[2017-06-16] MEDS: CEFTRIAXONE 1 G in NS 100 ML IV SCH (14:01)
--- NOTE | 2017-06-16 15:50 | Extended Care Facility Orders ---
Admission Orders Admit to:: Long-Term Allergies/Adverse Reactions: Allergies morphine Allergy (Intermediate, Verified 06/12/17 03:08) rash alendronate sodium Allergy (Unknown, Verified 06/12/17 03:08) Sulfa (Sulfonamide Antibiotics) Allergy (Unknown, Verified 06/12/17 03:08) NSAIDS (Non-Steroidal Anti-Inflamma Adverse Reaction (Unknown, Verified 03:08) KIDNEY PROBLEMS Admitting Diagnosis: UTI Admitting Physician: Candice Suggs MD Attending Physician: Candice Suggs MD Code Status: Full code Anticiapted Length of Stay: 30 days or less Rehab Potential: fair Rehab Prognosis: fair Diet: 06/15/17 Dinner Regular Diet [DIET] Diet Modifications: Food Consistency: MECSOF May use Facility Protocol or Standing Orders: Yes May have flu vaccine: Yes Evaluations/Treatment: Speech, PT, OT Long-Term Certification: I certify that SNF services are required to be given on an Inpatient basis because of the patients need for custodial care on a continuing basis for the condition(s) for which he/she received inpatient hospital services prior to his/her transfer to the SNF. SNF inpatient care is necessary for the following reasons Indication for Long-Term: Med Admininistration, Other (PT/OT) - Additional Information In Event of Arrest: Start CPR,call 911,send patient to the ER Resident is Aware of Diagnosis: Yes Additional Orders: Last dose of Tamiflu is tomorrow morning.
--- NOTE | 2017-06-16 17:48 | Discharge Summary ---
Discharge Information Date of admission: 06/12/17 01:57 Anticipated date of discharge: 06/16/17 Attending Physician: Candice Suggs MD Consults: - Discharge Diagnosis (1) Altered mental status Status: Acute (2) UTI (urinary tract infection) Status: Acute (3) Sepsis Status: Acute UTI Influenza A Dementia Hypoxemia A. fib with RVR Hypokalemia Chronic anemia/thrombocytopenia CKD Hypertension - Laboratory Labs: 06/14/17 04:30 06/16/17 08:00 - Radiology Radiology: Date of Exam: 06/12/17 Indication: sepsis, hypoxia PROCEDURE: XR chest 1V: Findings: Lungs are grossly clear. Overlying monitoring leads. No pleural effusion or pneumothorax. Heart size and mediastinal contours are stable allowing for rotation. Tortuous ectatic thoracic aorta. Pulmonary vascularity appears normal. Impression: Stable chest without acute cardiopulmonary disease. History of Present Illness HPI: 81 yo F with PMH of dementia who lives at home with her presented to the ED for reports of AMS. is not available to provide supplemental history and does not answer the phone at home and Mrs. Tanesha Crump reports only that she feels sick and cannot provide any details. She has had multiple trips to the ED for COPD exacerbations, falls, and UTI's. Per ER records the patients reports fevers and AMS for the past several days. On initial presentation, pt was wearing 4 incontinence briefs and was covered in her own urine and feces. Pt smelled strongly of incontinence and has likely been in her own filth for several days. UA was obtained by straight cath and was cloudy and suspected of being infected. Patient initial temp for EMS was 104 and 102.1 axillary on arrival in the ER. She was given IV levaquin in the ED, she then developed a tachyarrhythmia. Patient is supposed to take Cardizem 360mg PO QD but it's unknown what medications she has taken recently. She was given 10mg IV diltiazem in the ED with stabilization of the heart rate after which 60 mg of oral diltiazem was administered and she was admitted to the ICU for management. The patient denies all specific symptoms asked indicating only that she feels sick; after coughing she acknowledged that she has had a little cough and she's unsure how long it's been present. She reports that she is ambulatory and denied urinary incontinence. Patient asked when she would be able to go home on a number of occasions during our discussion. Objective Vital signs: Temperature 96.2 F L 06/16/17 11:17 Pulse Rate 73 06/16/17 11:17 Respiratory Rate 18 06/16/17 11:17 Blood Pressure 158/73 H 06/16/17 11:17 Pulse Oximetry 98 06/16/17 11:17 Height/Weight/BMI: Height 1.7 m Weight 46.2 kg Body Mass Index 17.1 - Constitutional Present: no acute distress, thin - Routine Respiratory Exam Present: CTA bilaterally. Absent: wheezes - Routine Cardiovascular Exam Present: irregular rhythm. Absent: murmur - Routine Abdominal Exam Present: soft, normoactive bowel sounds, non distended. Absent: tenderness - Routine Extremities Exam Present: no edema, normal capillary refill - Routine Skin Exam Present: dry, warm - Routine Neurological Exam Present: alert - Routine Lymphatic Exam Lymphatic: Absent: adenopathy - Routine Psychiatric Exam Present: cooperative Hospital Course This is a general summary of the patient's hospital course. For more details refer to the complete medical record. Hospital course: 06/12/17 13:54 Patient is admitted with altered mental status and fever. Urine source suggested by description in the emergency room although UA without pyuria. Cultures pending. Treated with Levaquin in the emergency room due to altered mental status will convert to Rocephin pending cultures. Fever and tachycardia/ tachypnea are really the only criteria present for sepsis on presentation and tachycardia may be due to transient cardiac arrhythmia unrelated to infection although there is no initial EKG to clarify what the rhythm was on presentation. Lactic acid and procalcitonin were reassuringly low. The patient can provide no information regarding symptoms prior to admission and is not presently available to provide supplemental history. Home situation does not appear to be safe based on 's presentation-case management consulted, Adult Protective Services should be notified based on described patient condition. Current list of medications has been obtained from the patient's pharmacy and will be continued. Review of charts indicates 8 kg weight loss since April 2015. Nutritional parameters will be evaluated. 06/14/17 09:59 Pt went into afib with rvr overnight and so was transferred to icu to start cardizem drip. Pt is asymptomatic and vitals are stable. Switched pt to esmolol drip since pt is already on cardizem PO. Will fix underlying hypokalemia and try to titrate off esmolol. Otherwise pt is doing well and stable. Plan is to have family discussion about discharge planning as pt lives with who likely is not able to take care of her. 06/15/17 10:04 Pt's afib rvr seems to be on/off, electrolyte imbalance and acute illness likely contributing. Transitioned from esmolol drip to metoprolol PO. Will try to transfer pt out of ICU today. Pt is asymptomatic. 06/16/17 Patient will finish course of Tamiflu tomorrow am. Rocephin completed for UTI. Plan DC to SNU at [facility]. Time spent with patient: greater than 35 minutes Discharge Plan - Discharge Disposition Discharge Date: 06/16/17 Disposition: 03 To SNU Not [facility] (SNF) *Condition: Improved Reason For Visit (Visit label in EMR): UTI - Discharge Medications *Discharge Medications: New Oseltamivir Cap [Tamiflu] 75 mg PO BID cap Potassium Chloride [K-Dur] 20 meq PO BIDWM tab Metoprolol Tartrate [Lopressor] 12.5 mg PO BIDWM tab Continue Omeprazole [Prilosec] 1 cap PO ACBID dilTIAZem HCl [Diltiazem 24Hr ER] 360 mg PO DAILY Discontinued Mirtazapine [Remeron] 15 mg PO HS Hydrocodone/APAP 5/325 [[place] 5/325] 1 tab PO QID PRN PRN Reason: Pain Metoclopramide HCl [Reglan] 10 mg PO BID No Action Ondansetron [Ondansetron Odt] 4 mg PO Q6HR PRN PRN Reason: Nausea - Discharge Packet/Instructions *Diet: mechanical soft diet *Activity: As tolerated - per physical therapy, occupational therapy *Pain Management/Treatment: n/a *Wound Care: n/a Additional Instructions: Last dose of Tamiflu should be tomorrow am. *Expected Signs/Symptoms: Continued strengthening *Notify Physician if: you develop fever, worsening cough or shortness of breath *During Business Hours Contact: nurse at [facility] *After Business Hours Contact: nurse at [facility] *Pending Lab/Results: No Pending Lab - Referrals/Follow Up - Patient Handouts Patient Handouts: Urinary Tract Infection in Women (GEN) Physician Narrative - Narrative Attestation Narrative: Date: 06/16/17 Time: [id number]
== END 2017-06-16 16:05 | DRG 872 ==
LOC: ED 23:47 → CCU 06-12 01:57 → SUATTDRO 06-12 01:57 → CCU 06-12 03:00 → MED 06-12 18:37 → CCU 06-14 03:25 → MED 06-15 12:11
PROVIDERS: ADMIT Internal Medicine; ATTEND Internal Medicine